=== PATIENT | male | born 1955 | race Caucasian/White ===

== ENCOUNTER → 2019-08-25 09:42 | Outpatient (BNVA) | payer MEDICARE, SELFPAY | PROVIDERS: Family Provider Registered Nurse; PCP Registered Nurse; Visit Provider Specialist | DX: I65.1 Occlusion and stenosis of basilar artery (principal); Z87.891 Personal history of nicotine dependence; Z86.73 Personal history of transient ischemic attack (TIA), and cerebral infarction without residual deficits | CPT/HCPCS: 99213 ==

== ENCOUNTER → 2019-09-24 08:22 | Outpatient (BNVA) | payer MEDICARE, SELFPAY | PROVIDERS: Family Provider Registered Nurse; PCP Registered Nurse; Visit Provider Registered Nurse | DX: E78.00 Pure hypercholesterolemia, unspecified (principal); R60.1 Generalized edema; I10 Essential (primary) hypertension; E78.5 Hyperlipidemia, unspecified; Z87.891 Personal history of nicotine dependence | CPT/HCPCS: 80061; 85025 ==

== ENCOUNTER 2019-11-18 10:29 | Outpatient (CLI) | payer MEDICARE, SELFPAY ==
--- NOTE | 2019-11-18 10:35 | MR_ITS ---
WS: [id number] MRA ANGIOGRAPHY [place] HISTORY: CVA COMPARISON: CT angiogram 01/07/2018 TECHNIQUE: 3-D MR angiography is performed of the [place]. All images are reviewed including source images. Dominant LEFT vertebral artery. Distal RIGHT vertebral artery is small caliber and tortuous but paten t. 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 No aneurysm. Posterior cerebral arteries are normal caliber. Hypoplas tic LEFT posterior communicating artery. Dominant RIGHT posterior communicating artery. Intracranial portion of the internal carotid arteries are normal course and caliber. No significant a therosclerosis, stenosis or aneurysm identified. Middle and anterior cerebral arteries are both paten t with no significant disease. Very mild diffuse narrowing of the RIGHT A1 segment. Similar to the pr ior examination with no progression. Anterior communicating artery is also normal. MR/MR angio head wo con [id number] IMPRESSION: 1. Dominant LEFT vertebral artery. 2. Mild narrowing of the proximal to mid basilar artery is unchanged. 3. Mild hypoplasia RIGHT A1 segment is unchanged. 4. No aneurysms or occlusions.
== END 2019-11-18 10:30 | disposition home or self-care (01) ==
LOC: RADWPI 10:34
PROVIDERS: Family Provider Registered Nurse; PCP Registered Nurse; Visit Provider Specialist
DX: I63.9 Cerebral infarction, unspecified (principal)
CPT/HCPCS: 70544

== ENCOUNTER → 2019-11-23 13:00 | Outpatient (BNVA) | payer MEDICARE, SELFPAY | PROVIDERS: Family Provider Registered Nurse; PCP Registered Nurse; Visit Provider Specialist | DX: I63.9 Cerebral infarction, unspecified (principal); I65.1 Occlusion and stenosis of basilar artery | CPT/HCPCS: 99213 ==

== ENCOUNTER 2019-11-30 09:57 | Outpatient (RCR) | payer MEDICARE, SELFPAY | END 2019-12-20 23:59 | disposition home or self-care (01) | LOC: SPT 09:57 | PROVIDERS: PCP Registered Nurse; Referring Provider Nurse Practitioner; Visit Provider Nurse Practitioner | DX: R42 Dizziness and giddiness (principal) | CPT/HCPCS: 95992; 97162 ==

== ENCOUNTER → 2022-01-23 09:04 | Outpatient (BNVA) | payer MEDICARE, SELFPAY | PROVIDERS: Referring Provider Nurse Practitioner Family; Visit Provider Anesthesiology Pain Medicine | DX: M41.9 Scoliosis, unspecified (principal); M47.816 Spondylosis without myelopathy or radiculopathy, lumbar region; M51.16 Intervertebral disc disorders with radiculopathy, lumbar region; M79.604 Pain in right leg; M79.605 Pain in left leg; Z87.891 Personal history of nicotine dependence | CPT/HCPCS: 99204 ==

== ENCOUNTER 2022-05-17 08:16 | Outpatient (CLI) | payer MEDICARE, SELFPAY ==
--- NOTE | 2022-05-17 08:00 | MR_ITS ---
WS: [id number] MRI LUMBAR SPINE NONCONTRAST HISTORY: Scoliosis and chronic back pain. No injury. COMPARISON: None available. TECHNIQUE: Sagittal and axial multisequence imaging is submitted. Straightening of the normal cervical lordosis. Cervical, thoracic and lumbar curvature. Moderate long curvature lumbar scoliosis to the LEFT. Disc space narrowing and degeneration most significant at L2-3. No fractures or marrow edema. Conus terminates normally at L1-2 disc level. L1-L2: Mild annular disc bulging and ligamentum flavum hypertrophy. Very mild RIGHT subarticular rece ss and foraminal stenosis. L2-L3: Osteophytic ridging and annular disc bulging with ligamentum flavum and facet arthritis. Mild central with bilateral subarticular recess and foraminal stenosis. Slightly greater encroachment upon the RIGHT subarticular recess and foramen. L3-L4: Diffuse annular disc bulge with a shallow LEFT foraminal disc protrusion. Mild ligamentum flav um and facet arthritis. Mild bilateral foraminal stenosis. L4-L5: Mild annular disc bulging and osteophytic ridging. Shallow LEFT subarticular disc protrusion w ith mild contact on the traversing LEFT L5 nerve root. Mild bilateral foraminal stenosis. L5-S1: Mild annular disc bulging. Bilateral facet joint arthritis. There is a small soft tissue signa l intensity extending superiorly from the L5-S1 disc space on the LEFT. Probably a small disc protrusion but does not appear to be contacting the nerve roots. Paravertebral soft tissues are normal. MR/MR lumbar spine wo con* [id number] IMPRESSION: 1. Cervical, thoracic and lumbar scoliosis. 2. Mild RIGHT subarticular recess and foraminal stenosis at L1-2. 3. Mild central, bilateral subarticular recess and foraminal stenosis at L2-3. Slightly greater encroachment upon the RIGHT subarticular recess. 4. Mild bilateral foraminal stenosis at L3-4 and L4-5. 5. Shallow LEFT subarticular disc protrusion at L4-5 with mild contact on the traversing L5 nerve root. 6. No high-grade central stenosis. 7. Bilateral mild facet joint arthropathy. Most significant at L5-S1.
== END 2022-05-17 08:17 | disposition home or self-care (01) ==
PROVIDERS: Visit Provider Anesthesiology Pain Medicine
DX: M51.16 Intervertebral disc disorders with radiculopathy, lumbar region (principal); M41.82 Other forms of scoliosis, cervical region; M41.84 Other forms of scoliosis, thoracic region; M41.86 Other forms of scoliosis, lumbar region; M48.061 Spinal stenosis, lumbar region without neurogenic claudication; M51.26 Other intervertebral disc displacement, lumbar region; M47.817 Spondylosis without myelopathy or radiculopathy, lumbosacral region
CPT/HCPCS: 72148

== ENCOUNTER → 2022-06-10 08:47 | Outpatient (BNVA) | payer MEDICARE, SELFPAY | PROVIDERS: Visit Provider Anesthesiology Pain Medicine | DX: M47.816 Spondylosis without myelopathy or radiculopathy, lumbar region (principal); M51.16 Intervertebral disc disorders with radiculopathy, lumbar region; M41.9 Scoliosis, unspecified; M79.605 Pain in left leg | CPT/HCPCS: 99214 ==

== ENCOUNTER 2022-08-18 15:50 | Emergency (ER) | payer MEDICARE, MEDICAID, SELFPAY ==
[2022-08-18 15:58] VITALS: BP 162/70; PULSE 102; RESP 18; TEMP 37.2; O2SAT 94
[2022-08-18] MEDS: sodium chloride 0.9% 1,000 ML 999 ML IV (16:21)
[2022-08-18 16:23] LABS: Basophils % 0.2 %; Eosinophils % 0.1 %; Hematocrit 45.3 % (42.0-52.0); Hemoglobin 14.2 g/dL (11.7-16.6); Lymphocytes # 0.6 10^3/uL (0.8-4.8); Lymphocytes % 3.3 %; Mean Corpuscular HGB Conc 31.3 g/dL (30.0-36.0); Mean Corpuscular Hemoglobin 25.9 pg (28.0-34.0); Mean Corpuscular Volume 82.5 fl (80-94); Monocytes # 1.9 10^3/uL (0.2-0.9); Monocytes % 10.1 %; Neutrophils # 16.27 10^3/uL (1.8-7.7); Neutrophils % 85.8 %; Nucleated Red Blood Cells % 0 %; Platelet Count 254 10^3/cmm (130-400); Red Blood Count 5.49 10^6/uL (4.1-5.3); Red Cell Distribution Width 15.8 % (12.1-15.1)
--- NOTE | 2022-08-18 16:24 | CTR_ITS ---
PROCEDURE INFORMATION: Exam: CT Abdomen And Pelvis Without Contrast Exam date and time: 08/18/2022 4:56 PM Age: 66 years old Clinical indication: Abdominal pain; Generalized TECHNIQUE: Imaging protocol: Computed tomography of the abdomen and pelvis without contrast. Radiation optimization: All CT scans at this facility use at least one of these dose optimization techniques: automated exposure control; mA and/or kV adjustment per patient size (includes targeted exams where dose is matched to clinical indication); or iterative reconstruction. REPORTING DATA: Count of CT and Cardiac NM exams in prior 12 months: This patient has received 0 known CTs and 0 known cardiac nuclear medicine studies in the 12 months prior to the current study. COMPARISON: MR lumbar spine wo con* [id number] 05/17/2022 8:42 AM RADIATION DOSE METRICS: Total DLP (mGy-cm): 1216.43 FINDINGS: Diaphragm: A small hiatal hernia is present. Liver: There is a diffuse decrease in hepatic parenchymal density, consistent with fatty infiltration. Gallbladder and bile ducts: Multiple calcified gallstones are present. The gallbladder is very distended with fluid/hydrops. The wall of the gallbladder is thickened or edematous measuring up to 6 mm. There is haziness of the fat adjacent to the gallbladder specially the neck of the gallbladder and proximal common bile duct. There are 2 [id number] calculi in the cystic duct/proximal common bile duct series 5 image 32 and 33. The cystic duct/common bile duct proximal to the 2 calculi measures 1.4 cm and the distal common bile duct is collapsed and barely identifiable. Pancreas: The pancreas is normal. Spleen: The spleen is normal. An accessory splenule is present. Adrenal glands: Normal. No mass. Kidneys and ureters: There is no evidence of hydronephrosis. There is a patulous appearance of the distal right ureter but no obstructing calculi or perinephric fat stranding. The left ureters unremarkable. There is no evidence of renal calcifications. Stomach and bowel: There is no evidence of intestinal perforation or obstruction. Moderate diverticulosis is present in the distal colon. There is no evidence of colitis/diverticulitis. Appendix: A normal appendix is identified. Intraperitoneal space: Unremarkable. No free air. No significant fluid collection. 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 The remainder of the abdominal aorta is unremarkable. Lymph nodes: Unremarkable.No enlarged lymph nodes. Urinary bladder: There is nonspecific bladder wall thickening. This may be related to incomplete distention. Reproductive: The prostate demonstrates mild nonspecific enlargement. The seminal vesicles are normal. Bones/joints: There is levoscoliosis. No acute bony abnormality. Soft tissues: Small bilateral fat filled inguinal hernias are noted. There is a fat-containing umbilical hernia. CT/CT abdomen pelvis wo con [id number] IMPRESSION: Acute cholecystitis. Two xuco-xq-ukqx calculi are identified in either the cystic duct or common bile duct with duct dilatation proximal to the calculi, abundant induration of the adjacent fat, markedly distended gallbladder and gallbladder wall thickening/edema. Distal common bile duct is not dilated. Cholelithiasis is also noted.
--- NOTE | 2022-08-18 16:24 | W.ED.ABDPA2 ---
Documented by User: Lorenzo Tolentino DO 08/18/22 17:56 HPI - Abdominal Pain General: Chief Complaint: Abdominal Pain Stated Complaint: abd pains Time Seen by Provider: 08/18/22 15:54 Source: patient Mode of arrival: ambulatory History of Present Illness: 66-year-old male presents emergency room planing of diarrhea that started about 4 days ago and developed abdominal pain. Mostly epigastric however when I examined the patient it was actually more right upper quadrant. He has a large umbilical hernia and its been nonreducible for some time. Initially did not have any pain around the hernia but did some heavy lifting on Friday and Friday and now he has more pain at the hernia site. MD elicited complaint: abdominal pain Pertinent past history: none Onset (ago): day(s) (4) Pain Consistency: constant Location: Periumbilical Severity: moderate Quality: cramping Radiation: RUQ Exacerbating factors: nothing Relieving factors: nothing Associated Symptoms: Denies anorexia, belching, bloating, change in bowel habits, change in stool character, chills, coffee ground emesis, constipation, GI cramping, diarrhea, dyspepsia, dysuria, excessive flatus, fever(s), heartburn, hematochezia, hematuria, hematemesis, fecal incontinence, loose stools, melena, nausea, poor appetite, syncope and vomiting Review of Systems Const: Denies: fever(s) or chills Card: Denies: syncope GI: Denies: nausea, vomiting, hematemesis, coffee ground emesis, heartburn, diarrhea, constipation, bloating, GI cramping, belching, excessive flatus, fecal incontinence, change in bowel habits, change in stool character, hematochezia or melena : Denies: dysuria or hematuria PFSH ED PFSH: Medical History Quit smoking Family History Mother Hypertension CAD (coronary artery disease) Cancer Father CAD (coronary artery disease) Mother CAD (coronary artery disease) Cancer Lung Father CAD (coronary artery disease) Alcohol abuse Social History Smoking and tobacco status: former smoker Alcohol intake: current Alcohol intake frequency: holidays/special occasions only Alcohol type: beer Course Vital Signs: Vital signs: Vital Signs Temperature 99.0 F 08/18/22 15:58 Pulse Rate 90 08/18/22 22:54 Respiratory Rate 16 08/18/22 22:54 Blood Pressure 142/71 08/18/22 22:54 Pulse Oximetry 95 08/18/22 22:54 Oxygen Delivery Me thod Room Air 08/18/22 19:08 MDM - Abdominal Pain Medical Decision Making Patient has acute cholecystitis with possible common bile duct stone. MRCP has been ordered patient is allergic to penicillin so was started on ceftriaxone and Flagyl. Care signed out to Dr. Hair at change of shift. See final notes for diagnosis and disposition. Medical Records I reviewed the patient's medical records. Lab Data I reviewed the patient's lab results. 08/18/22 16:15 08/18/22 16:15 Labs/Radiology: Radiology Impressions Abdomen/Pelvis CT 08/18/22 16:24 IMPRESSION: Acute cholecystitis. Two hnlm-sy-ycfd calculi are identified in either the cystic duct or common bile duct with duct dilatation proximal to the calculi, abundant induration of the adjacent fat, markedly distended gallbladder and gallbladder wall thickening/edema. Distal common bile duct is not dilated. Cholelithiasis is also noted. Cholangiopancreatography MRI 08/18/22 17:43 IMPRESSION: 1. Sequela consistent with acute cholecystitis. No evidence of biliary obstruction/choledocholithiasis. 2. Hepatic steatosis. COMMENTS: Consistent with the [employer]'s Incidental Findings Committee white paper (J Am Elmer Radiol 2018): Any incidental renal lesion less than 1 cm or classified as too small to characterize, or any incidental cystic renal lesion characterized as simple-appearing, is likely benign. No follow-up imaging is recommended for these lesions per consensus recommendations based on imaging criteria. Laboratory Results WBC 19.0 10^3/uL (4.0-10.0) H 08/18/22 16:15 RBC 5.49 10^6/uL (4.1-5.3) H 08/18/22 16:15 Hgb 14.2 g/dL (11.7-16.6) 08/18/22 16:15 Hct 45.3 % (42.0-52.0) 08/18/22 16:15 MCV 82.5 fl (80-94) 08/18/22 16:15 MCH 25.9 pg (28.0-34.0) L 08/18/22 16:15 MCHC 31.3 g/dL (30.0-36.0) 08/18/22 16:15 RDW 15.8 % (12.1-15.1) H 08/18/22 16:15 Plt Count 254 10^3/cmm (130-400) 08/18/22 16:15 MPV 11.0 fL (7.4-10.4) H 08/18/22 16:15 Neut % (Auto) 85.8 % 08/18/22 16:15 Lymph % (Auto) 3.3 % 08/18/22 16:15 [place] % (Auto) 10.1 % 08/18/22 16:15 Eos % (Auto) 0.1 % 08/18/22 16:15 Baso % (Auto) 0.2 % 08/18/22 16:15 Neut # (Auto) 16.27 10^3/uL (1.8-7.7) H 08/18/22 16:15 Lymph # (Auto) 0.6 10^3/uL (0.8-4.8) L 08/18/22 16:15 [place] # (Auto) 1.9 10^3/uL (0.2-0.9) H 08/18/22 16:15 Eos # (Auto) 0.0 10^3/uL (0.0-0.8) 08/18/22 16:15 Baso # (Auto) 0.0 10^3/uL (0.0-0.1) 08/18/22 16:15 Nucleated RBC % (auto) 0 % 08/18/22 16:15 Nucleated RBCs # 0.0 /100WBC 08/18/22 16:15 Sodium 132 mmol/L (136-145) L 08/18/22 16:15 Potassium 4.1 mmol/L (3.5-5.1) 08/18/22 16:15 Chloride 96 mmol/L (98-107) L 08/18/22 16:15 Carbon Dioxide 22 mmol/L (22-29) 08/18/22 16:15 Anion Gap 18.1 (5-19) 08/18/22 16:15 BUN 21 mg/dL (8-23) 08/18/22 16:15 Creatinine 1.3 mg/dL (0.7-1.2) H 08/18/22 16:15 GFR Calculation 55.4 mL/min (90-130) L 08/18/22 16:15 Glucose 137 mg/dL (65-115) H 08/18/22 16:15 Calculated Osmolality 279 mOsm/kg (285-295) L 08/18/22 16:15 Calcium 8.5 mg/dL (8.5-10.5) 08/18/22 16:15 Magnesium 1.2 mg/dL (1.7-2.3) L 08/18/22 16:15 Total Bilirubin 2.3 mg/dL (0.15-1.2) H 08/18/22 16:15 AST 14 U/L (0-40) 08/18/22 16:15 ALT 17 U/L (0-41) 08/18/22 16:15 Alkaline Phosphatase 131 U/L (40-130) H 08/18/22 16:15 Total Protein 7.5 g/dL (6.6-8.7) 08/18/22 16:15 Albumin 4.1 g/dL (3.5-5.2) 08/18/22 16:15 Globulin 3.4 g/dL (1.3-4.6) 08/18/22 16:15 Lipase 16 U/L (13-60) 08/18/22 16:15 Urine Color Dark yellow (Yellow) 08/18/22 16:30 Urine Appearance Clear (CLEAR) 08/18/22 16:30 Urine pH 6.5 (5-7) 08/18/22 16:30 Ur Specific [place] 1.010 (1.005-1.030) 08/18/22 16:30 Urine Protein Neg (Negative) 08/18/22 16:30 Urine Glucose (UA) Norm (Normal) 08/18/22 16:30 Urine Ketones Negative (Negative) 08/18/22 16:30 Urine Blood Neg (Negative) 08/18/22 16:30 Urine Nitrate Negative (Negative) 08/18/22 16:30 Urine Bilirubin Neg (Negative) 08/18/22 16:30 Urine Urobilinogen 1 mg/dL (Negative) H 08/18/22 16:30 Ur Leukocyte Esterase Negative (Negative) 08/18/22 16:30 Discharge Plan Discharge Patient Disposition: Xfer Short-Term Hosp Clinical Impression: Acute calculous cholecystitis Condition: Stable Referrals: Elda Ptaricio FNP [Primary Care Provider] - Coding Level of Care Code ED Life Skills Coordinator Volunteer for [facility] Documented by User: Bolivar Hair, 08/18/22 23:35 HPI - Abdominal Pain General: Chief Complaint: Abdominal Pain Stated Complaint: abd pains Time Seen by Provider: 08/18/22 15:54 PFSH ED PFSH: Medical History Quit smoking Family History Mother Hypertension CAD (coronary artery disease) Cancer Father CAD (coronary artery disease) Mother CAD (coronary artery disease) Cancer Lung Father CAD (coronary artery disease) Alcohol abuse Social History Smoking and tobacco status: former smoker Alcohol intake: current Alcohol intake frequency: holidays/special occasions only Alcohol type: beer Course Vital Signs: Vital signs: Vital Signs Temperature 99.0 F 08/18/22 15:58 Pulse Rate 90 08/18/22 22:54 Respiratory Rate 16 08/18/22 22:54 Blood Pressure 142/71 08/18/22 22:54 Pulse Oximetry 95 08/18/22 22:54 Oxygen Delivery Me thod Room Air 08/18/22 19:08 MDM - Abdominal Pain Medical Decision Making Patient has acute cholecystitis with possible common bile duct stone. MRCP has been ordered patient is allergic to penicillin so was started on ceftriaxone and Flagyl. Care signed out to Dr. Hair at change of shift. See final notes for diagnosis and disposition. Patient checked out to me by Dr. Tolentino at shift change. MRCP results show sequela consistent with acute cholecystitis. There is no evidence of bowel duct/biliary tree obstruction or choledocholithiasis. Spoke with hospitalist service, they are willing to admit provided surgery will consult. We have a call out to the surgeon. Spoke with our on-call surgeon Dr. Mccollum. Dr. Mccollum states that while the patient's MRCP is negative, his bilirubin is still elevated, requiring him to be transferred to a facility for ERCP capability is present. We have a call out to [facility] in [place], as they do have gastroenterology available for consultation there. Awaiting callback [facility] his excepted the transfer. Patient will go to [facility] bed. He is stable for transport. EMS is here to get the patient. Lab Data 08/18/22 16:15 08/18/22 16:15 Labs/Radiology: Radiology Impressions Abdomen/Pelvis CT 08/18/22 16:24 IMPRESSION: Acute cholecystitis. Two vxhr-ag-cmrd calculi are identified in either the cystic duct or common bile duct with duct dilatation proximal to the calculi, abundant induration of the adjacent fat, markedly distended gallbladder and gallbladder wall thickening/edema. Distal common bile duct is not dilated. Cholelithiasis is also noted. Cholangiopancreatography MRI 08/18/22 17:43 IMPRESSION: 1. Sequela consistent with acute cholecystitis. No evidence of biliary obstruction/choledocholithiasis. 2. Hepatic steatosis. COMMENTS: Consistent with the [employer] [employer]'s Incidental Findings Committee white paper (J Am Elmer Radiol 2018): Any incidental renal lesion less than 1 cm or classified as too small to characterize, or any incidental cystic renal lesion characterized as simple-appearing, is likely benign. No follow-up imaging is recommended for these lesions per consensus recommendations based on imaging criteria. Laboratory Results WBC 19.0 10^3/uL (4.0-10.0) H 08/18/22 16:15 RBC 5.49 10^6/uL (4.1-5.3) H 08/18/22 16:15 Hgb 14.2 g/dL (11.7-16.6) 08/18/22 16:15 Hct 45.3 % (42.0-52.0) 08/18/22 16:15 MCV 82.5 fl (80-94) 08/18/22 16:15 MCH 25.9 pg (28.0-34.0) L 08/18/22 16:15 MCHC 31.3 g/dL (30.0-36.0) 08/18/22 16:15 RDW 15.8 % (12.1-15.1) H 08/18/22 16:15 Plt Count 254 10^3/cmm (130-400) 08/18/22 16:15 MPV 11.0 fL (7.4-10.4) H 08/18/22 16:15 Neut % (Auto) 85.8 % 08/18/22 16:15 Lymph % (Auto) 3.3 % 08/18/22 16:15 [place] % (Auto) 10.1 % 08/18/22 16:15 Eos % (Auto) 0.1 % 08/18/22 16:15 Baso % (Auto) 0.2 % 08/18/22 16:15 Neut # (Auto) 16.27 10^3/uL (1.8-7.7) H 08/18/22 16:15 Lymph # (Auto) 0.6 10^3/uL (0.8-4.8) L 08/18/22 16:15 [place] # (Auto) 1.9 10^3/uL (0.2-0.9) H 08/18/22 16:15 Eos # (Auto) 0.0 10^3/uL (0.0-0.8) 08/18/22 16:15 Baso # (Auto) 0.0 10^3/uL (0.0-0.1) 08/18/22 16:15 Nucleated RBC % (auto) 0 % 08/18/22 16:15 Nucleated RBCs # 0.0 /100WBC 08/18/22 16:15 Sodium 132 mmol/L (136-145) L 08/18/22 16:15 Potassium 4.1 mmol/L (3.5-5.1) 08/18/22 16:15 Chloride 96 mmol/L (98-107) L 08/18/22 16:15 Carbon Dioxide 22 mmol/L (22-29) 08/18/22 16:15 Anion Gap 18.1 (5-19) 08/18/22 16:15 BUN 21 mg/dL (8-23) 08/18/22 16:15 Creatinine 1.3 mg/dL (0.7-1.2) H 08/18/22 16:15 GFR Calculation 55.4 mL/min (90-130) L 08/18/22 16:15 Glucose 137 mg/dL (65-115) H 08/18/22 16:15 Calculated Osmolality 279 mOsm/kg (285-295) L 08/18/22 16:15 Calcium 8.5 mg/dL (8.5-10.5) 08/18/22 16:15 Magnesium 1.2 mg/dL (1.7-2.3) L 08/18/22 16:15 Total Bilirubin 2.3 mg/dL (0.15-1.2) H 08/18/22 16:15 AST 14 U/L (0-40) 08/18/22 16:15 ALT 17 U/L (0-41) 08/18/22 16:15 Alkaline Phosphatase 131 U/L (40-130) H 08/18/22 16:15 Total Protein 7.5 g/dL (6.6-8.7) 08/18/22 16:15 Albumin 4.1 g/dL (3.5-5.2) 08/18/22 16:15 Globulin 3.4 g/dL (1.3-4.6) 08/18/22 16:15 Lipase 16 U/L (13-60) 08/18/22 16:15 Urine Color Dark yellow (Yellow) 08/18/22 16:30 Urine Appearance Clear (CLEAR) 08/18/22 16:30 Urine pH 6.5 (5-7) 08/18/22 16:30 Ur Specific [place] 1.010 (1.005-1.030) 08/18/22 16:30 Urine Protein Neg (Negative) 08/18/22 16:30 Urine Glucose (UA) Norm (Normal) 08/18/22 16:30 Urine Ketones Negative (Negative) 08/18/22 16:30 Urine Blood Neg (Negative) 08/18/22 16:30 Urine Nitrate Negative (Negative) 08/18/22 16:30 Urine Bilirubin Neg (Negative) 08/18/22 16:30 Urine Urobilinogen 1 mg/dL (Negative) H 08/18/22 16:30 Ur Leukocyte Esterase Negative (Negative) 08/18/22 16:30 Discharge Plan Discharge Patient Disposition: Xfer Short-Term Hosp Clinical Impression: Acute calculous cholecystitis Condition: Stable Referrals: Sintia,Elda, HEEL TURNER [Primary Care Provider] - Coding Level of Care Code ED Life Skills Coordinator Volunteer for Danielle Wing
[2022-08-18 16:44] LABS: Alanine Aminotransferase 17 U/L (0-41); Albumin Level 4.1 g/dL (3.5-5.2); Alkaline Phosphatase 131 U/L (40-130); Anion Gap 18.1 (5-19); Aspartate Amino Transferase 14 U/L (0-40); Blood Urea Nitrogen 21 mg/dL (8-23); Calcium 8.5 mg/dL (8.5-10.5); Carbon Dioxide 22 mmol/L (22-29); Chloride 96 mmol/L (98-107); Globulin 3.4 g/dL (1.3-4.6); Glomerular Filtration Rate 55.4 mL/min (90-130); Glucose 137 mg/dL (65-115); Lipase 16 U/L (13-60); Magnesium 1.2 mg/dL (1.7-2.3); Osmolality Calculated 279 mOsm/kg (285-295); Potassium 4.1 mmol/L (3.5-5.1); Sodium 132 mmol/L (136-145); Total Bilirubin 2.3 mg/dL (0.15-1.2); Total Protein 7.5 g/dL (6.6-8.7)
[2022-08-18 16:46] LABS: Creatinine Clr Calc Pharmacy 78.0147
[2022-08-18 16:48] VITALS: RESP 17; O2SAT 96
[2022-08-18 16:48] LABS: Add Urine Microscopic? NO; Charge for UA Resulting for Rev
[2022-08-18 16:53] LABS: Bilirubin Urine Neg (Negative); Blood Urine Neg (Negative); Glucose Urine UA Norm (Normal); Ketones Urine Negative (Negative); Leukocyte Esterase Urine Negative (Negative); Nitrate Urine Negative (Negative); Protein Urine Neg (Negative); Urine Appearance Clear (CLEAR); Urine Color Dark Yellow (Yellow); Urobilinogen Urine 1 mg/dL (Negative); pH Urine 6.5 (5-7)
--- NOTE | 2022-08-18 17:43 | MRR_ITS ---
PROCEDURE INFORMATION: Exam: MR Abdomen Without Contrast Exam date and time: 08/18/2022 6:54 PM Age: 66 years old Clinical indication: Abdominal pain; Generalized; Additional info: Dilated common bile duct hyperbilirubinemia TECHNIQUE: Imaging protocol: Magnetic resonance imaging of the abdomen without contrast. COMPARISON: CT abdomen pelvis con [id number] 08/18/2022 4:56 PM FINDINGS: Liver: Diffuse hepatic steatosis. No mass. Gallbladder and bile ducts: Cholelithiasis and debris noted within the gallbladder neck. The gallbladder is mildly distended. There is wall thickening up to 5 mm. Trace pericholecystic fluid noted. No filling defects seen within the common bile duct. No dilation of the intrahepatic or extrahepatic biliary system. Pancreas: Unremarkable. No ductal dilation. Spleen: Unremarkable. No splenomegaly. Adrenal glands: Unremarkable. No mass. Kidneys and ureters: Mild right-sided caliectasis. Subcentimeter cyst noted in the left kidney. No solid mass. Stomach and bowel: Visualized stomach and intestines are unremarkable. Intraperitoneal space: No free fluid. Vasculature: No abdominal aortic aneurysm. Bones/joints: Unremarkable. Soft tissues: Unremarkable. MR/MR MRCP [id number] IMPRESSION: 1. Sequela consistent with acute cholecystitis. No evidence of biliary obstruction/choledocholithiasis. 2. Hepatic steatosis. COMMENTS: Consistent with the [place] [employer]'s Incidental Findings Committee white paper (J Am Elmer Radiol 2018): Any incidental renal lesion less than 1 cm or classified as too small to characterize, or any incidental cystic renal lesion characterized as simple-appearing, is likely benign. No follow-up imaging is recommended for these lesions per consensus recommendations based on imaging criteria.
[2022-08-18] MEDS: morphine 4 mg/mL SDV 1 mL IVP (18:27)
[2022-08-18 19:08] VITALS: O2SAT 98
[2022-08-18 19:34] VITALS: BP 154/71; PULSE 90; RESP 16; O2SAT 95
[2022-08-18] MEDS: cefTRIAXone 2,000 MG in sodium chloride 0.9% (plus) 50 ML 100 MG IV (19:35)
[2022-08-18] MEDS: metroNIDAZOLE IV 500 MG/100 ML PREMIX 100 MG IV (20:03)
[2022-08-18 22:00] VITALS: BP 127/81; PULSE 86; RESP 16; O2SAT 94
[2022-08-18 22:54] VITALS: BP 142/71; PULSE 90; RESP 16; O2SAT 95
== END 2022-08-18 23:51 | disposition short-term general hospital (02) ==
LOC: ER 21:18 → MEDSURG 21:23 → ER 23:35
PROVIDERS: Family Medicine; Emergency Provider Emergency Medicine; PCP Nurse Practitioner Family
DX: K80.00 Calculus of gallbladder with acute cholecystitis without obstruction (principal)
CPT/HCPCS: 36415; 74176; 74181; 80053; 81003; 83690; 83735; 85025; 87040; 96361; 96365; 96375; 99285; J0696; J2270; J3490; J7030

== ENCOUNTER 2022-08-23 07:39 | Inpatient (IN) | payer MEDICARE, MEDICAID, SELFPAY ==
[2022-08-23] VITALS (66 sets, daily range): BP systolic 122–157; BP diastolic 72–96; PULSE 43–138; RESP 14–39; TEMP 36.6; O2SAT 86–99; BMI 38.7
--- NOTE | 2022-08-23 07:47 | XR_ITS ---
WS: [id number] Portable AP upright chest, 08/23/2022 Clinical Data: dyspnea/cough Comparison: Portable chest, 01/07/2018. Findings: No nodules, masses or effusions are seen. The heart is normal. The pulmonary vascularity is not increased. No pneumonia or pneumothorax is seen. The aortic arch and descending thoracic aorta s how tortuosity. There is a dextroscoliosis. Monitor leads are on the chest wall. XR/XR chest 1V portable [id number] Impression: Atherosclerosis.
--- NOTE | 2022-08-23 07:51 | ECG_ITS ---
[facility] Test Date: 2022-08-23 Pat Name: Yannick Lucas Department: Room: Gender: Male [place] Consultant: : [id number] Requested By: Lorenzo Santacruz Order Number: [id number] Saurav MD: Anam Moralez M.D. Measurements Intervals [place] Rate: 105 P: 61 GA: 153 QRS: 125 QRSD: 107 T: 4 QT: 346 QTc: 458 Interpretive Statements SINUS TACHYCARDIA POSSIBLE RIGHT VENTRICULAR HYPERTROPHY [SOME/ALL OF: PROMINENT R IN V1, LATE TRANSITION, RAD, ROSANGELA, SSS] Compared to ECG 01/07/2018 13:11:16 Atrial abnormality now present Sinus rhythm no longer present Indeterminate axis no longer present Left posterior fascicular block no longer present Electronically Signed On 08-23-2022 11:00:13 CDT by Anam Moralez M.D. [email or web address]
--- NOTE | 2022-08-23 07:52 | ED_ITS ---
HPI - SOB/Dyspnea General: Chief Complaint: Shortness of Breath/Dyspnea Stated Complaint: SOB/ low ox Time Seen by Provider: 08/23/22 07:46 Source: patient Mode of arrival: ambulatory History of Present Illness: HPI Narrative: 66-year-old male who presents to the emergency room with complaints of shortness of breath. On the he was seen with cholecystitis symptoms had a common bile duct obstruction and was transferred. He had a cholecystectomy and ERCP and a stent placed. Today returns complaining of shortness of breath and rapid heart rate mild chest discomfort. No known history of coronary artery disease. He has not had any swelling in his legs no previous history of DVT. No fever sweats or chills no nausea or vomiting. He is requiring 2 L by nasal cannula he normally is on room air. MD elicited complaint: shortness of breath and cough Onset (ago): day(s) Context: recent illness Timing: constant Severity: moderate Exacerbating factors: exertion and coughing Relieving factors: oxygen and rest Associated symptoms: Deny abdominal pain, chest pain, fever(s), nausea, orthopnea, palpitations or vomiting Review of Systems Const: Denies: fever(s), chills, body aches, change in appetite, fatigue or malaise ENMT: Denies: throat pain, ear or mastoid pain, nasal discharge or nasal congestion Card: Denies: chest pain, palpitations, irregular heart rhythm, edema, dyspnea on exertion or orthopnea Resp: Denies: dyspnea, productive cough or non-productive cough GI: Denies: abdominal pain, nausea, vomiting, hematemesis, coffee ground emesis, diarrhea, constipation, bloating, hematochezia or melena : Denies: flank pain, dysuria, urinary frequency or urinary urgency Skin/Breast: Denies: rash or pruritus PFSH ED PFSH: Medical History Carotid stenosis Chronic kidney disease COPD (chronic obstructive pulmonary disease) CVA (cerebral vascular accident) Hyperlipidemia Hypertension TYLER (obstructive sleep apnea) Quit smoking Surgical History History of biliary duct stent placement History of cholecystectomy Family History Mother Hypertension CAD (coronary artery disease) Cancer Father CAD (coronary artery disease) Mother CAD (coronary artery disease) Cancer Lung Father CAD (coronary artery disease) Alcohol abuse Social History Smoking and tobacco status: former smoker Alcohol intake: current Alcohol intake frequency: holidays/special occasions only Alcohol type: beer Physical Exam Const: GENERAL APPEARANCE: cooperative and comfortable ORIENTATION/CONSCIOUSNESS: Yes awake, Yes oriented to person, Yes oriented to place and Yes oriented to time HENMT: COMMON NORMALS: normocephalic, atraumatic and hearing grossly normal bilaterally HEAD & SCALP: normocephalic and atraumatic Resp: COMMON NORMALS: normal respiratory effort, No retractions, No use of acc essory muscles and clear to auscultation bilaterally AUSCULTATION: clear to auscultation bilaterally Cardio: COMMON NORMALS: regular rate, regular rhythm and No murmurs present (Cardio) RATE: regular rate RHYTHM: regular rhythm GI: COMMON NORMALS: Soft to palpation and No hepatosplenomegaly present AUSCULTATION: Yes normoactive bowel sounds PALPATION: Yes Soft to palpation, No Tenderness to palpation present (GI), No Guarding due to palpation present (G I) and Yes No hepatosplenomegaly present Extremity: COMMON NORMALS: normal to inspection, capillary refill normal, no clubbing, cyanosis or edema, no calf tenderness and no pedal edema Neuro: SENSORIUM/ORIENTATION: Yes oriented to person, Yes oriented to place and Yes oriented to time Skin: COMMON NORMALS: no rashes or lesions noted GENERAL SKIN EXAM: no rashes or lesions noted Course Vital Signs: Vital signs: Vital Signs Pulse Rate 103 H 08/23/22 15:09 Respiratory Rate 18 08/23/22 15:09 Blood Pressure 122/76 08/23/22 12:46 Pulse Oximetry 95 08/23/22 15:09 Oxygen Delivery Me thod Nasal Cannula 08/23/22 15:09 Oxygen Flow Rate 2 08/23/22 15:09 MDM - SOB/Dyspnea Medical Decision Making Initial evaluation patient was presenting as if he had a pulmonary embolism PE. CTA of the chest was negative for PE but did have an incidental finding of an ascending aortic aneurysm. This left to be followed up as an outpatient. Continues to require oxygen. His troponins are elevated but did not trend up. His BNP is elevated. Suspect he has some acute diastolic heart failure he does have some lower extremity edema. Additional incidental finding of right hydronephrosis without acute obstruction this may need further outpatient evaluation by urology. He did have some improvement with steroids and DuoNeb. I think there is some component of COPD exacerbation as well discussed with hospitalist will admit for further inpatient work-up and treatment. Medical Records I reviewed the patient's medical records. Lab Data I reviewed the patient's lab results. 08/23/22 08:17 08/23/22 08:17 Labs/Radiology: Radiology Impressions Chest X-Ray 08/23/22 07:47 Impression: Atherosclerosis. Chest CTA 08/23/22 07:56 IMPRESSION: 1. No pulmonary embolism. 2. 5.1 cm aneurysm of the ascending aorta with ulcerated plaque at the isthmus. Recommend surgical consultation. In general, aortic diameters of 5.[address] patients at high risk for rupture and should be considered for intervention. If connective tissue diseases such as Marfan or Jenn-Danlos disease is known, then a diameter of 5 cm prompts consideration of prophylactic aortic root replacement. 3. Bronchial wall thickening in the lower lobes without consolidation. Possible acute bronchitis. 4. Intraperitoneal free air consistent with recent cholecystectomy. 5. Incidental findings above. ADDENDUM: 08/23/22 0957 THIS REPORT CONTAINS FINDINGS THAT MAY BE CRITICAL TO PATIENT CARE. The findings were verbally communicated via telephone conference with LORENZO SOLIS at 9:56 AM CDT on 08/23/2022. The findings were acknowledged and understood. Abdomen/Pelvis CT 08/23/22 10:03 IMPRESSION: 1. Cholecystectomy. Expected postsurgical edema in the right upper quadrant with trace perihepatic fluid and small volume intraperitoneal free air. No abscess. No sign of significant bile leak. 2. Appropriately positioned patent distal common bile duct stent. 3. Dilated distal right ureter and mild right hydronephrosis. Probable stricture at the ureterovesical junction. No stone or mass is visible. Ureteral findings are similar to 08/18/2022. Hydronephrosis is mildly increased. Acute obstruction is not suspected. 4. Incidental findings above. Laboratory Results WBC 11.4 10^3/uL (4.0-10.0) H 08/23/22 08:17 RBC 4.45 10^6/uL (4.1-5.3) 08/23/22 08:17 Hgb 11.5 g/dL (11.7-16.6) L 08/23/22 08:17 Hct 38.1 % (42.0-52.0) L 08/23/22 08:17 MCV 85.6 fl (80-94) 08/23/22 08:17 MCH 25.8 pg (28.0-34.0) L 08/23/22 08:17 MCHC 30.2 g/dL (30.0-36.0) 08/23/22 08:17 RDW 15.5 % (12.1-15.1) H 08/23/22 08:17 Plt Count 236 10^3/cmm (130-400) 08/23/22 08:17 MPV 10.6 fL (7.4-10.4) H 08/23/22 08:17 Neut % (Auto) 84.9 % 08/23/22 08:17 Lymph % (Auto) 4.0 % 08/23/22 08:17 Amelia % (Auto) 9.2 % 08/23/22 08:17 Eos % (Auto) 1.1 % 08/23/22 08:17 Baso % (Auto) 0.3 % 08/23/22 08:17 Neut # (Auto) 9.67 10^3/uL (1.8-7.7) H 08/23/22 08:17 Lymph # (Auto) 0.5 10^3/uL (0.8-4.8) L 08/23/22 08:17 Amelia # (Auto) 1.1 10^3/uL (0.2-0.9) H 08/23/22 08:17 Eos # (Auto) 0.1 10^3/uL (0.0-0.8) 08/23/22 08:17 Baso # (Auto) 0.0 10^3/uL (0.0-0.1) 08/23/22 08:17 Nucleated RBC % (auto) 0 % 08/23/22 08:17 Nucleated RBCs # 0.0 /100WBC 08/23/22 08:17 Sodium 135 mmol/L (136-145) L 08/23/22 08:17 Potassium 3.9 mmol/L (3.5-5.1) 08/23/22 08:17 Chloride 96 mmol/L (98-107) L 08/23/22 08:17 Carbon Dioxide 28 mmol/L (22-29) 08/23/22 08:17 Anion Gap 14.9 (5-19) 08/23/22 08:17 BUN 33 mg/dL (8-23) H 08/23/22 08:17 Creatinine 1.4 mg/dL (0.7-1.2) H 08/23/22 08:17 GFR Calculation 50.9 mL/min (90-130) L 08/23/22 08:17 Glucose 134 mg/dL (65-115) H 08/23/22 08:17 Estimat Average Glucose 128 08/23/22 08:17 Hemoglobin A1c 6.1 % (4.0-6.0) H 08/23/22 08:17 Calculated Osmolality 289 mOsm/kg (285-295) 08/23/22 08:17 Calcium 8.0 mg/dL (8.5-10.5) L 08/23/22 08:17 Total Bilirubin 0.5 mg/dL (0.15-1.2) 08/23/22 08:17 AST 38 U/L (0-40) 08/23/22 08:17 ALT 40 U/L (0-41) 08/23/22 08:17 Alkaline Phosphatase 127 U/L (40-130) 08/23/22 08:17 Troponin T Baseline 74 ng/L (0-15) H 08/23/22 08:17 Troponin T 120 Minute 72.51 ng/L (0-15) H 08/23/22 10:26 Delta Troponin T -1.49 ABS# (0-10) L 08/23/22 10:26 NT-Pro-B Natriuret Pep 5804 pg/mL (0-125) H 08/23/22 08:17 Total Protein 6.7 g/dL (6.6-8.7) 08/23/22 08:17 Albumin 3.2 g/dL (3.5-5.2) L 08/23/22 08:17 Globulin 3.5 g/dL (1.3-4.6) 08/23/22 08:17 TSH 0.33 uIU/mL (0.27-4.20) 08/23/22 10:26 Urine Color Yellow (Yellow) 08/23/22 09:13 Urine Appearance Clear (CLEAR) 08/23/22 09:13 Urine pH 5 (5-7) 08/23/22 09:13 Ur Specific Surveyor 1.020 (1.005-1.030) 08/23/22 09:13 Urine Protein Trace (Negative) 08/23/22 09:13 Urine Glucose (UA) Norm (Normal) 08/23/22 09:13 Urine Ketones 1+ (Negative) H 08/23/22 09:13 Urine Blood Neg (Negative) 08/23/22 09:13 Urine Nitrate Negative (Negative) 08/23/22 09:13 Urine Bilirubin Neg (Negative) 08/23/22 09:13 Urine Urobilinogen Neg mg/dL (Negative) 08/23/22 09:13 Ur Leukocyte Esterase Negative (Negative) 08/23/22 09:13 Urine RBC 0-4 /hpf (0-2) H 08/23/22 09:13 Urine WBC 0-4 /hpf (0-5) H 08/23/22 09:13 Ur Squamous Epith Cells 0-4 /hpf (0-5) H 08/23/22 09:13 Amorphous Sediment Not Reportable 08/23/22 09:13 Urine Bacteria Trace /hpf (NONE) 08/23/22 09:13 Hyaline Casts 0-4 /lpf H 08/23/22 09:13 Urine Mucus 1+ /hpf 08/23/22 09:13 Discharge Plan Discharge Patient Disposition: Admitted As Inpatient Admit Provider: Marty Taylor Clinical Impression: Congestive heart failure, COPD with acute exacerbation, Ascending aortic aneurysm, Hydronephrosis Condition: Stable Coding Level of Care Code ED Server Security Administrator for Danielle Wing
--- NOTE | 2022-08-23 07:56 | CTR_ITS ---
PROCEDURE INFORMATION: Exam: CTA Chest With Contrast Exam date and time: 08/23/2022 8:40 AM Age: 66 years old Clinical indication: Fever and tachypnea; Prior surgery; Surgery type: Gb; Patient HX: Dyspnea/ tachycardia PT got about 20cc before iv came apart; Additional info: Dyspnea/tachycardia TECHNIQUE: Imaging protocol: Computed tomographic angiography of the chest with contrast. 3D rendering (Not supervised by radiologist): MIP and/or 3D reconstructed images were created by the technologist. Radiation optimization: All CT scans at this facility use at least one of these dose optimization techniques: automated exposure control; mA and/or kV adjustment per patient size (includes targeted exams where dose is matched to clinical indication); or iterative reconstruction. Contrast material: OMNI 350; Contrast volume: 78 ml; Contrast route: INTRAVENOUS (IV); REPORTING DATA: Count of CT and Cardiac NM exams in prior 12 months: This patient has received [address] and 0 known cardiac nuclear medicine studies in the 12 months prior to the current study. COMPARISON: 1. CR XR chest 1V portable [id number] 08/23/2022 7:[address] angio headneck* [id number] 01/07/2018 3:[address] abdomen pelvis wo con [id number] 08/18/2022 4:56 PM RADIATION DOSE METRICS: Total DLP (mGy-cm): 1058.2 FINDINGS: Pulmonary arteries: The pulmonary arteries are adequately opacified for evaluation to the subsegmental level. There is no filling defect to suggest embolism. 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 Aorta: There is ulcerated plaque at the aortic isthmus. Similar findings were partially imaged on 01/07/2018. The ascending aorta is dilated, measuring up to 5.1 cm diameter. Lungs: There is a benign calcified granuloma in the right upper lobe. There is no consolidation. There is subsegmental atelectasis in both lower lobes. There is diffuse bronchial wall thickening and luminal narrowing in the lower lobes, more apparent on the left. Pleural spaces: There is no pleural effusion or pneumothorax. Heart: There is moderate cardiac enlargement. There is no pericardial effusion. Coronary arteries: There is severe coronary artery calcification. Lymph nodes: There is no mediastinal or hilar lymphadenopathy. Diaphragm: There is a small sliding-type hiatal hernia. Gallbladder and bile ducts: There is pneumobilia suggesting prior sphincterotomy. Spleen: The spleen is mildly enlarged. Intraperitoneal space: There is intraperitoneal free air in the anterior upper abdomen. Bones/joints: Bones are unremarkable. Soft tissues: The extrathoracic soft tissues are unremarkable. CT/CT angio chest PE protcl [id number] IMPRESSION: 1. No pulmonary embolism. 2. 5.1 cm aneurysm of the ascending aorta with ulcerated plaque at the isthmus. Recommend surgical consultation. In general, aortic diameters of 5.[address] patients at high risk for rupture and should be considered for intervention. If connective tissue diseases such as Marfan or Jenn-Danlos disease is known, then a diameter of 5 cm prompts consideration of prophylactic aortic root replacement. 3. Bronchial wall thickening in the lower lobes without consolidation. Possible acute bronchitis. 4. Intraperitoneal free air consistent with recent cholecystectomy. 5. Incidental findings above.
[2022-08-23 08:23] LABS: Basophils % 0.3 %; Eosinophils # 0.1 10^3/uL (0.0-0.8); Eosinophils % 1.1 %; Hematocrit 38.1 % (42.0-52.0); Hemoglobin 11.5 g/dL (11.7-16.6); Lymphocytes # 0.5 10^3/uL (0.8-4.8); Mean Corpuscular HGB Conc 30.2 g/dL (30.0-36.0); Mean Corpuscular Hemoglobin 25.8 pg (28.0-34.0); Mean Corpuscular Volume 85.6 fl (80-94); Mean Platelet Volume 10.6 fL (7.4-10.4); Monocytes # 1.1 10^3/uL (0.2-0.9); Monocytes % 9.2 %; Neutrophils # 9.67 10^3/uL (1.8-7.7); Neutrophils % 84.9 %; Nucleated Red Blood Cells % 0 %; Platelet Count 236 10^3/cmm (130-400); Red Blood Count 4.45 10^6/uL (4.1-5.3); Red Cell Distribution Width 15.5 % (12.1-15.1); White Blood Count 11.4 10^3/uL (4.0-10.0)
[2022-08-23 08:42] LABS: Alanine Aminotransferase 40 U/L (0-41); Albumin Level 3.2 g/dL (3.5-5.2); Alkaline Phosphatase 127 U/L (40-130); Anion Gap 14.9 (5-19); Aspartate Amino Transferase 38 U/L (0-40); Blood Urea Nitrogen 33 mg/dL (8-23); Carbon Dioxide 28 mmol/L (22-29); Chloride 96 mmol/L (98-107); Globulin 3.5 g/dL (1.3-4.6); Glomerular Filtration Rate 50.9 mL/min (90-130); Glucose 134 mg/dL (65-115); Osmolality Calculated 289 mOsm/kg (285-295); Potassium 3.9 mmol/L (3.5-5.1); Sodium 135 mmol/L (136-145); Total Bilirubin 0.5 mg/dL (0.15-1.2); Total Protein 6.7 g/dL (6.6-8.7)
[2022-08-23 08:43] LABS: Troponin(5th) Baseline 74 ng/L (0-15)
[2022-08-23] MEDS: iohexol 350 mg/mL 500 mL Btl (per mL) IV (08:59)
[2022-08-23 09:39] LABS: Bilirubin Urine Neg (Negative); Blood Urine Neg (Negative); Glucose Urine UA Norm (Normal); Ketones Urine 1+ (Negative); Leukocyte Esterase Urine Negative (Negative); Nitrate Urine Negative (Negative); Protein Urine Trace (Negative); Urine Appearance Clear (CLEAR); Urine Color Yellow (Yellow); Urobilinogen Urine Neg (Negative); pH Urine 5 (5-7)
[2022-08-23 09:40] LABS: Add Urine Microscopic? YES
[2022-08-23 09:43] LABS: Add Urine Culture? No; Bacteria Urine TRACE /hpf; Hyaline Casts Urine 0-4 /lpf; Mucus Urine 1+ /hpf; RBC Urine 0-4 /hpf (0-2); Squamous Epithelial Cell Urine 0-4 /hpf (0-5); WBC Urine 0-4 /hpf (0-5)
--- NOTE | 2022-08-23 09:47 | ECG_ITS ---
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 Measurements Intervals [place] Rate: 108 P: 62 [place]: 164 QRS: 125 QRSD: 104 T: -15 QT: 337 QTc: 453 Interpretive Statements SINUS TACHYCARDIA POSSIBLE RIGHT VENTRICULAR HYPERTROPHY [SOME/ALL OF: PROMINENT R IN V1, LATE TRANSITION, RAD, ROSANGELA, SSS] MINIMAL ST DEPRESSION [0.025+ mV ST DEPRESSION] ABNORMAL QRS-T ANGLE [QRS-T AXIS DIFFERENCE > 60] Compared to ECG 08/23/2022 07:51:18 ST (T wave) deviation now present Electronically Signed On 08-23-2022 11:00:32 CDT by Anam Moralez M.D. [id number]
--- NOTE | 2022-08-23 10:03 | CTR_ITS ---
PROCEDURE INFORMATION: Exam: CT Abdomen And Pelvis Without Contrast Exam date and time: 08/23/2022 10:10 AM Age: 66 years old Clinical indication: Abdominal pain; Prior surgery; Surgery type: Gb TECHNIQUE: Imaging protocol: Computed tomography of the abdomen and pelvis without contrast. Radiation optimization: All CT scans at this facility use at least one of these dose optimization techniques: automated exposure control; mA and/or kV adjustment per patient size (includes targeted exams where dose is matched to clinical indication); or iterative reconstruction. REPORTING DATA: Count of CT and Cardiac NM exams in prior 12 months: This patient has received [address] and 0 known cardiac nuclear medicine studies in the 12 months prior to the current study. COMPARISON: 1. MR MRCP [id number] 08/18/2022 6:[address] abdomen pelvis wo con [id number] 08/18/2022 4:56 PM 3. MR lumbar spine wo con* [id number] 05/17/2022 8:42 AM RADIATION DOSE METRICS: Total DLP (mGy-cm): 1229.03 FINDINGS: Lungs: There is subsegmental atelectasis in the lung bases. Liver: No hepatic parenchymal abnormality. Gallbladder and bile ducts: The gallbladder is absent. There are surgical clips in the gallbladder fossa. The extrahepatic and central intrahepatic ducts in the left lobe contains gas consistent with sphincterotomy and stent placement. The biliary stent is appropriately positioned in the distal common bile duct. The distal margin of the stent is in the duodenal lumen. Pancreas: There is moderate atrophy of the pancreas. No sign of acute pancreatitis. Spleen: The spleen is unremarkable. Adrenal glands: The adrenal glands are unremarkable. Kidneys and ureters: There is mild right hydronephrosis and diffuse hydroureter. The ureter is progressively dilated distally to the level of the ureterovesical junction where there is high-grade focal narrowing. No filling defect. There is no hydronephrosis or ureteral dilation on the left. Renal collecting systems are filled with contrast which could obscure stones. Stomach and bowel: The stomach is decompressed, preventing meaningful evaluation of wall thickness. There is mild edema along the serosal surface of the descending duodenum which is likely reactive edema related to surgical changes in the right upper quadrant. The small bowel is nondilated. There is mild sigmoid colonic diverticulosis without evidence of diverticulitis. Appendix: The appendix is normal. Intraperitoneal space: Small volume of intraperitoneal free air in the upper abdomen consistent with recent abdominal surgery. There is trace perihepatic fluid and mesenteric edema extending to gallbladder fossa. There is no organized abscess. Vasculature: There is moderate aortic atherosclerotic disease. Lymph nodes: There is no lymphadenopathy in the retroperitoneum, mesentery, pelvis or inguinal regions. Urinary bladder: The urinary bladder is unremarkable. Reproductive: The prostate and seminal vesicles are unremarkable. Bones/joints: There is a chronic nondisplaced pars defect on the left at L5. No spondylolisthesis. There is moderate degenerative disease in the lumbar spine. The pelvis and hips are unremarkable. Soft tissues: There is a moderate-sized fat containing umbilical hernia. There is well-defined lobulated soft tissue density surrounding the distal aorta and IVC extending to the bifurcation, similar to findings on 05/17/2022. This is suggestive of retroperitoneal fibrosis. CT/CT abdomen pelvis wo con [id number] IMPRESSION: 1. Cholecystectomy. Expected postsurgical edema in the right upper quadrant with trace perihepatic fluid and small volume intraperitoneal free air. No abscess. No sign of significant bile leak. 2. Appropriately positioned patent distal common bile duct stent. 3. Dilated distal right ureter and mild right hydronephrosis. Probable stricture at the ureterovesical junction. No stone or mass is visible. Ureteral findings are similar to 08/18/2022. Hydronephrosis is mildly increased. Acute obstruction is not suspected. 4. Incidental findings above.
[2022-08-23] MEDS: ipratropium-albuterol 3 mL Neb INHALATION ×3 (10:17→21:11)
[2022-08-23] MEDS: dexamethasone 10 mg/mL INJ IVP (10:20)
[2022-08-23 10:24] LABS: NT Pro B Type Natriuretic Pept 5804 pg/mL (0-125)
[2022-08-23 10:55] LABS: Troponin 5 2HR 72.51 ng/L (0-15)
[2022-08-23 11:06] LABS: Troponin 5 2HR Delta -1.49 ABS# (0-10)
[2022-08-23] MEDS: aspirin 81 mg Chew Tablet 324 MG PO (11:26)
[2022-08-23] MEDS: nitroglycerin drip 50 MG/250 ML PREMIX IV (11:27)
--- NOTE | 2022-08-23 12:49 | P.HP_ITS ---
Providers/Chief Complaint Admitting Physician: Marty Taylor MD Primary Care Provider: LAURI Blackwood Chief Complaint: SOB/ low ox History of Present Illness Yannick Lucas is a 66 year old male presenting to the emergency department with shortness of breath. He was recently at [facility], for cholecystectomy. Following the procedure he had an ERCP and stent placed. Records regarding this are not yet available. He was sent home yesterday. Upon arriving home he was short of breath, and oxygen level was noted to be low, mid 70s, by his daughter when she checked it after climbing his porch. He reported a little bit of burning when he took a deep breath. She has some oxygen which she gave him last night and when he was not better this morning brought him in. He has been coughing on occasion, wheezing, and coughing up some dark substance. No hemopt ysis. No fever. May have received antibiotics in the hospital but none on discharge home. No diarrhea, or vomiting. Denies any persistent chest discomfort. Does have swelling, for which he has taken diuretics in the past. No particular history of heart failure. Some abdominal pain at surgical site. He has been passing flatus. Feels better currently, after being placed on oxygen. Other emergency department treatment included Solu-Medrol, DuoNeb. Review of Systems General: Reports: 10 or more systems reviewed and unremarkable except in HPI and below Const: Denies: fever(s) or chills Card: Reports: chest pain and swelling of feet/ankles Resp: Reports: dyspnea and productive cough; Denies: hemoptysis GI: Reports: abdominal pain; Denies: nausea, vomiting, hematochezia or melena Medications/Allergies Home Medications Medication Instructions Recorded Confirmed Last Taken Type hydrochlorothiazide 25 mg tablet See Rx Instructions .Route 10/06/20 08/23/22 Unknown Rx .COMPLEX #30 tabs aspirin 81 mg tablet,delayed 81 mg PO DAILY 01/23/22 08/23/22 Unknown History release (Adult Aspirin Regimen) metoprolol succinate 50 mg 50 mg PO DAILY 01/23/22 08/23/22 Unknown History tablet,extended release 24 hr albuterol sulfate 90 mcg/actuation 2 puff inhalation Q4H PRN 08/23/22 08/23/22 Unknown History aerosol inhaler Shortness Of Breath Or Wheezing atorvastatin 80 mg tablet 80 mg PO QPM 08/23/22 08/23/22 Unknown History hydrocodone 5 mg-acetaminophen 325 1 tab PO Q8H PRN Pain 08/23/22 08/23/22 Unknown History mg tablet Allergies Allergy/AdvReac Type Severity Reaction Status Date / Time penicillin G Allergy Unknown Verified 08/23/22 08:40 Penicillins Allergy ADR-Dizzine Verified 08/23/22 08:40 ss PFSH Acute PFSH: Medical History Carotid stenosis Chronic kidney disease COPD (chronic obstructive pulmonary disease) CVA (cerebral vascular accident) Hyperlipidemia Hypertension TYLER (obstructive sleep apnea) Quit smoking Surgical History History of biliary duct stent placement History of cholecystectomy Family History Mother Hypertension CAD (coronary artery disease) Cancer Father CAD (coronary artery disease) Mother CAD (coronary artery disease) Cancer Lung Father CAD (coronary artery disease) Alcohol abuse Social History Smoking and tobacco status: former smoker Alcohol intake: current Alcohol intake frequency: holidays/special occasions only Alcohol type: beer Vitals/I&O/Wt Last Vital Signs Pulse 107 H 08/23/22 12:46 Resp 18 08/23/22 12:46 BP 122/76 08/23/22 12:46 Pulse Ox 97 08/23/22 12:46 O2 Del Method Nasal Cannula 08/23/22 12:22 O2 Flow Rate 2 08/23/22 11:33 Weight last 48 hrs Weight 129.727 kg Weight 129.727 kg Physical Exam Narrative: General exam is white male, no distress, currently on oxygen per nasal cannula. HEENT: Atraumatic normocephalic. Oropharynx clear. Neck is supple no lymphadenopathy thyromegaly Cardiovascular slight tachycardia, no murmur Lungs bilateral expiratory wheezes. No crackles. Abdomen is soft. Slight distention. Slight tenderness around surgical sites. Umbilical hernia is noted which is reducible. Positive bowel sounds. Extremities trace to 1+ edema bilaterally Skin no rash Neuro no obvious focal deficits. Data 08/23/22 08:17 08/23/22 08:17 Other Labs: Calcium 8.0 LFTs normal Troponin 74 with repeat of 72 Albumin 3.2 Urinalysis negative Chest x-ray by my read scoliosis, some atherosclerotic disease, a little bit of fluid in the right fissure CTA chest demonstrates no pulmonary embolism. 5.1 cm aneurysm of the ascending or aorta with ulcerated plaque is noted Bronchial wall thickening in the lower lobes is noted Intraperitoneal free air consistent with recent cholecystectomy Abdomen pelvis CT postcholecystectomy. No abscess. Appropriately positioned stent. Dilated right ureter and mild right hydro question stricture ureterovesical junction EKG demonstrates sinus tachycardia, borderline right axis deviation, nonspecific ST-T wave changes. BNP is 5800 A&P Assessment and plan (1) Acute heart failure: The patient presented with shortness of breath. He has increased total body fluid manifested by edema. He has some fluid along his right lung fissure on chest x-ray. His BNP is elevated. This is consistent with acute heart failure, most likely diastolic. Lasix 40 mg IV x1 Agree with trending troponins. Troponin is slightly elevated likely from heart strain. Check echocardiogram Check TSH Reevaluate for repeat Lasix dose tomorrow morning BMP tomorrow (2) COPD with acute exacerbation: Patient is actively wheezing, has a diagnosis of COPD. Emergency department has given IV steroids. Continue prednisone 40 mg daily Budesonide twice daily, DuoNeb every 4 hours Doxycycline 100 mg twice daily Wean oxygen as tolerated (3) Ascending aortic aneurysm: Incidentally found ascending aortic aneurysm, with some ulcerated plaque. Will need outpatient follow-up with vascular surgery Already on statin Add low-dose beta-radha (4) Hydronephrosis: Incidentally found right hydronephrosis, likely stricture. Urinalysis is negative. Will need outpatient urology Plan Recent cholecystectomy, with ERCP and stent placement following. Follow LFTs. Multiple other medical problems as outlined in past medical history Attestations Medical Necessity Statement*: Will require greater than 2 midnight stay for evaluation and treatment of acute heart failure, COPD exacerbation Diagnoses Acute heart failure I50.9 COPD with acute exacerbation J44.1 Ascending aortic aneurysm I71.21 Hydronephrosis N13.30 Time Spent (min) 57
--- NOTE | 2022-08-23 13:04 | USCV_ITS ---
Yannick Lucas Age: 66 Gender: M : 1955 Exam Date: 08/23/2022 13:51 Ordering Phys: Marty Taylor MD Technologist: TERRI Exam Location: [facility] [place] Indication: heart failure BP: / HR: 101 Rhythm: Sinus Technical Quality: Suboptimal MEASUREMENTS (Male / Female) Normal Values 2D ECHO LV Diastolic Diameter PLAX 5.6 cm 4.2 - 5.9 / 3.9 - 5.3 cm LV Systolic Diameter PLAX 4.9 cm IVS Diastolic Thickness 1.2 cm 0.6 - 1.0 / 0.6 - 0.9 cm IVS Systolic Thickness 1.5 cm LVPW Diastolic Thickness 1.0 cm 0.6 - 1.0 / 0.6 - 0.9 cm LVPW Systolic Thickness 1.4 cm LVOT Diameter 2.6 cm LV Ejection Fraction 2D Teich 19.3 % LV Ejection Fraction MOD 2C 44.0 % LV Ejection Fraction 2C AL 42.0 % LA Diameter 4.1 cm M-MODE Aortic Annulus Diameter 4.0 cm LA Ao Ratio MM 1.1 MV E Point Septal Separation 1.0 cm DOPPLER AV Peak Velocity 122.0 cm/s LVOT Peak Velocity 96.0 cm/s AV Area Cont Eq vti 5.8 cm squared AV Area Cont Eq pk 4.1 cm squared MV Area PHT 5.0 cm squared Mitral E to A Ratio 0.8 MV E' Velocity 40.5 cm/s Mitral E to MV E' Ratio 9.0 Mitral E to LV E' Lateral Ratio 7.0 Mitral E to LV E' Septal Ratio 13.0 TV Peak E Velocity 60.0 cm/s FINDINGS Left Ventricle The examination is technically limited. The ventricle is probably normal in size and function. The ejection fraction is estimated at 55%. No obvious wall motion disturbances. Grade 1 diastolic dysfunction Right Ventricle The right ventricle is not well seen . It appears mildly enlarged but functions normally. Right Atrium The right atrium is normal in size. Left Atrium The left atrium is normal in size. Mitral Valve Structurally normal mitral valve. No mitral valve regurgitation. Aortic Valve Structurally normal aortic valve without significant sclerosis or stenosis. There is no aortic regurgitation. Tricuspid Valve Structurally normal tricuspid valve without significant stenosis or regurgitation. Pulmonary artery systolic pressure is normal. Pulmonic Valve Pulmonic valve not well visualized. Pericardium Normal pericardium without effusion. Aorta Normal ascending aorta dimension. IVC Inferior vena cava not visualized. CONCLUSIONS The examination is technically limited. The ventricle is probably normal in size and function. The ejection fraction is estimated at 55%. No obvious wall motion disturbances. Grade 1 diastolic dysfunction. The right ventricle is not well seen . It appears mildly enlarged but functions normally. No change from the previous study done 01/08/2018. Dr. Marlon Sears MD (Electronically Signed) Final Date: 24 Aug 2022 09:34 S
[2022-08-23 13:26] LABS: Estmated Average Glucose 128; Hemoglobin A1C 6.1 % (4.0-6.0)
[2022-08-23 13:35] LABS: Thyroid Stimulating Hormone 0.33 uIU/mL (0.27-4.20)
[2022-08-23] MEDS: FUROsemide 10 mg/mL SDV 4mL 40 MG IVP (13:35)
[2022-08-23 14:55] LABS: Troponin 5 6HR 60.67 ng/L (0-15)
[2022-08-23] MEDS: oxyCODONE 5 mg IR Tab/Cap PO ×2 (15:04→21:37)
[2022-08-23 16:07] LABS: Adenovirus Not Detected (NOT DETECT); Chlamydia Pneumoniae Not Detected (NOT DETECT); Coronavirus 229E,HKU1,NL63,OC4 Not Detected (NOT DETECT); Human Metapneumovirus Not Detected (NOT DETECT); Human Rhinovirus/Enterovirus Not Detected (NOT DETECT); Influenza A Not Detected (NOT DETECT); Influenza A H1 Not Detected (NOT DETECT); Influenza A H1-2009 Not Detected (NOT DETECT); Influenza A H3 Not Detected (NOT DETECT); Influenza B Not Detected (NOT DETECT); Mycoplasma Pneumoniae Not Detected (NOT DETECT); Parainfluenza Virus Type 1 Not Detected (NOT DETECT); Parainfluenza Virus Type 2 Not Detected (NOT DETECT); Parainfluenza Virus Type 3 Not Detected (NOT DETECT); Parainfluenza Virus Type 4 Not Detected (NOT DETECT); Respiratory Syncytial Virus A Not Detected (NOT DETECT); Respiratory Syncytial Virus B Not Detected (NOT DETECT); SARS-COV-2 Not Detected (NOT DETECT)
[2022-08-23] MEDS: doxycycline 100 mg Tablet PO (18:51)
[2022-08-23] MEDS: budesonide 0.5 mg/2 mL Neb INHALATION (21:10)
[2022-08-23] MEDS: metoprolol tartrate 25 mg Tablet 12.5 MG PO (21:33)
[2022-08-24] VITALS (16 sets, daily range): BP systolic 124–139; BP diastolic 72–88; PULSE 63–109; RESP 14–27; TEMP 36.7–36.9; O2SAT 94–97
[2022-08-24] MEDS: ipratropium-albuterol 3 mL Neb INHALATION ×7 (00:06→23:08)
[2022-08-24] MEDS: budesonide 0.5 mg/2 mL Neb INHALATION ×2 (07:58→20:10)
[2022-08-24] MEDS: doxycycline 100 mg Tablet PO ×2 (09:53→17:13)
[2022-08-24] MEDS: metoprolol tartrate 25 mg Tablet 12.5 MG PO ×2 (09:53→20:58)
[2022-08-24] MEDS: predniSONE 20 mg Tablet 40 MG PO (09:53)
--- NOTE | 2022-08-24 11:00 | PM.PN ---
Subjective Subjective: Seen at bedside today admitted for COPD exacerbation and new onset HFpEF Pt states he is feeling improved today compared to admission. still having some SOB and swelling in legs. Denies CP, palpitations, N/V/D/C, abd pain. Vitals/I&O/Wt Last Vital Signs Temp 98.0 F 08/24/22 04:00 Pulse 78 08/24/22 08:00 Resp 19 H 08/24/22 08:00 BP 139/88 08/24/22 04:00 Pulse Ox 96 08/24/22 08:00 O2 Del Method Nasal Cannula 08/24/22 08:00 O2 Flow Rate 2 08/24/22 08:00 08/23/22 08/24/22 08/24/22 22:59 06:59 14:59 Intake Total 240 / 244.55 500 / 744.55 120 / 120 Output Total 300 / 300 Balance 240 / 244.55 200 / 444.55 120 / 120 Weight last 48 hrs Weight 331 lb 11.2 oz Weight 286 lb Weight 286 lb Physical Exam Narrative: General exam is white male, no distress, currently on oxygen per nasal cannula. HEENT: Atraumatic normocephalic. Oropharynx clear. Neck is supple no lymphadenopathy thyromegaly Cardiovascular; RRR, no murmur/rub/gallop. 1+ pitting edema bilateral legs Lungs distant lung sounds, mild bilateral expiratory wheezes. No crackles. Abdomen is soft. Slight distention. Slight tenderness around surgical sites. Umbilical hernia is noted which is reducible. Positive bowel sounds. Skin no rash Neuro no obvious focal deficits. Data 08/23/22 08:17 08/23/22 08:17 A&P Assessment and plan (1) Acute heart failure: ECHO: EF 55/5, G1 diastolic dysfunction given lasix 40mg IVP x 1 SOB and edema have improved troponins slightly elevated form heart strain but no NSTEMI/STEMI pending BMP from today will give another lasix 40mg (2) COPD with acute exacerbation: improved respiration. less wheezing Continue prednisone 40 mg daily Budesonide twice daily, DuoNeb every 4 hours Doxycycline 100 mg twice daily Wean oxygen as tolerated (3) Ascending aortic aneurysm: Incidentally found ascending aortic aneurysm, with some ulcerated plaque. Will need outpatient follow-up with vascular surgery Already on statin Add low-dose beta-radha (4) Hydronephrosis: Incidentally found right hydronephrosis, likely stricture. Urinalysis is negative. Will need outpatient urology Plan Recent cholecystectomy, with ERCP and stent placement following. Follow LFTs. pending report from FERGUSON Multiple other medical problems as outlined in past medical history Attestations Medical Necessity Statement*: heart failure Coding Level of Care Code 66049 Diagnoses Acute heart failure I50.9 COPD with acute exacerbation J44.1 Ascending aortic aneurysm I71.21 Hydronephrosis N13.30
[2022-08-24] MEDS: FUROsemide 10 mg/mL SDV 2mL 20 MG IVP (12:11)
[2022-08-24] MEDS: lactulose oral liq 20 gm/30 mL UDC 10 GM PO (12:11)
[2022-08-24 16:24] LABS: Alanine Aminotransferase 39 U/L (0-41); Albumin Level 3.2 g/dL (3.5-5.2); Alkaline Phosphatase 120 U/L (40-130); Aspartate Amino Transferase 32 U/L (0-40); Blood Urea Nitrogen 41 mg/dL (8-23); Calcium 8.3 mg/dL (8.5-10.5); Carbon Dioxide 29 mmol/L (22-29); Chloride 99 mmol/L (98-107); Globulin 3.4 g/dL (1.3-4.6); Glomerular Filtration Rate 60.8 mL/min (90-130); Glucose 282 mg/dL (65-115); Osmolality Calculated 306 mOsm/kg (285-295); Sodium 138 mmol/L (136-145); Total Bilirubin 0.2 mg/dL (0.15-1.2); Total Protein 6.6 g/dL (6.6-8.7)
[2022-08-25] VITALS (66 sets, daily range): BP systolic 125–145; BP diastolic 71–82; PULSE 8–106; RESP 15–36; TEMP 36.3–36.8; O2SAT 91–99
[2022-08-25] MEDS: ipratropium-albuterol 3 mL Neb INHALATION ×5 (03:22→19:24)
[2022-08-25 06:18] LABS: Hematocrit 36.4 % (42.0-52.0); Hemoglobin 10.6 g/dL (11.7-16.6); Lymphocytes # 0.5 10^3/uL (0.8-4.8); Lymphocytes % 5.3 %; Mean Corpuscular HGB Conc 29.1 g/dL (30.0-36.0); Mean Corpuscular Hemoglobin 25.2 pg (28.0-34.0); Mean Corpuscular Volume 86.7 fl (80-94); Mean Platelet Volume 11.2 fL (7.4-10.4); Monocytes # 0.8 10^3/uL (0.2-0.9); Monocytes % 8.5 %; Neutrophils % 85.7 %; Nucleated Red Blood Cells % 0 %; Platelet Count 273 10^3/cmm (130-400); Red Cell Distribution Width 15.9 % (12.1-15.1); White Blood Count 9.6 10^3/uL (4.0-10.0)
[2022-08-25] MEDS: budesonide 0.5 mg/2 mL Neb INHALATION ×2 (07:51→19:24)
[2022-08-25] MEDS: predniSONE 20 mg Tablet 40 MG PO (09:47)
[2022-08-25] MEDS: doxycycline 100 mg Tablet PO ×2 (09:47→17:21)
[2022-08-25] MEDS: metoprolol tartrate 25 mg Tablet 12.5 MG PO ×2 (09:47→20:33)
--- NOTE | 2022-08-25 11:52 | PM.PN ---
Subjective Subjective: Patient this morning was short of breath and tachycardic No signs of PE Echocardiogram showed preserved ejection fraction grade 1 diastolic dysfunction Currently on 3 L of oxygen Which is new onset I did inform the patient about his AAA 5.1 cm along right hydro nephrosis Vitals/I&O/Wt Last Vital Signs Temp 97.4 F L 08/25/22 07:55 Pulse 89 08/25/22 11:39 Resp 18 08/25/22 11:39 BP 143/82 08/25/22 07:55 Pulse Ox 99 08/25/22 11:39 O2 Del Method Nasal Cannula 08/25/22 11:39 O2 Flow Rate 3 08/25/22 11:39 08/24/22 08/25/22 08/25/22 22:59 06:59 14:59 Intake Total 1000 / 1520 1050 / 2570 Output Total 1200 / 1950 800 / 2750 Balance -200 / -430 250 / -180 Weight last 48 hrs Weight 148.189 kg Weight 150.457 kg Weight 129.727 kg Weight 129.727 kg Physical Exam Narrative: Currently patient is on 3 L Tachypneic and tachycardic Crackles at base of the lungs Abdomen distended umbilical hernia positive no active pain Nonfocal neuro exam DC 50 1+ edema of legs Data 08/25/22 05:55 08/24/22 15:10 A&P Assessment and plan (1) Congestive heart failure: (2) Hydronephrosis: (3) COPD with acute exacerbation: (4) Ascending aortic aneurysm: (5) Acute heart failure: (6) Quit smoking: (7) Basilar artery stenosis: Plan Acute preserved ejection fraction heart failure exacerbation Continue diuresis Acute hypoxia related to COPD exacerbation due to CHF exacerbation Wean oxygen if possible We will need home O2 eval tomorrow AAA 5.1 cm patient will need vascular referral at discharge Right hydronephrosis no active worsening of kidney function, patient making good urine at this point, I have informed patient to see urology down the road For COPD exacerbation continue prednisone ERCP with biliary stent no active worsening Plan to discharge him tomorrow if clinically stable Patient is full code Currently on 3 L Attestations Medical Necessity Statement*: Anticipating discharge by tomorrow if stable Diagnoses Congestive heart failure I50.9 Hydronephrosis N13.30 COPD with acute exacerbation J44.1 Ascending aortic aneurysm I71.21 Acute heart failure I50.9 Quit smoking Z87.891 Basilar artery stenosis I65.1
[2022-08-25] MEDS: bumetanide 0.25 mg/mL SDV 4 mL 1 MG IVP (12:31)
--- NOTE | 2022-08-25 17:35 | PC.NURSE ---
Patient reports that he cannot walk for home 02 evaluation because it hurts to walk but when nurse asks him about pain, especially pain when walking, he states he has none.
[2022-08-26] VITALS (11 sets, daily range): BP systolic 125–150; BP diastolic 70–77; PULSE 75–89; RESP 16–26; TEMP 36.6–36.8; O2SAT 87–97
[2022-08-26] MEDS: ipratropium-albuterol 3 mL Neb INHALATION ×3 (00:08→11:23)
[2022-08-26] MEDS: bumetanide 0.25 mg/mL SDV 4 mL 1 MG IVP (00:54)
[2022-08-26 04:22] LABS: Anion Gap 12.9 (5-19); Blood Urea Nitrogen 41 mg/dL (8-23); Calcium 8.2 mg/dL (8.5-10.5); Carbon Dioxide 32 mmol/L (22-29); Chloride 98 mmol/L (98-107); Glomerular Filtration Rate 60.8 mL/min (90-130); Glucose 127 mg/dL (65-115); Osmolality Calculated 300 mOsm/kg (285-295); Potassium 3.9 mmol/L (3.5-5.1); Sodium 139 mmol/L (136-145)
[2022-08-26] MEDS: budesonide 0.5 mg/2 mL Neb INHALATION (07:50)
[2022-08-26] MEDS: metoprolol tartrate 25 mg Tablet 12.5 MG PO (09:37)
[2022-08-26] MEDS: doxycycline 100 mg Tablet PO (09:37)
[2022-08-26] MEDS: predniSONE 20 mg Tablet 40 MG PO (09:37)
--- NOTE | 2022-08-26 09:38 | PM.DCS ---
Discharge Providers Date of Admission: 08/23/22 11:26 Date of Discharge: August 26, 2022 Attending Provider at Admission: Marty Taylor MD Attending Provider at Discharge: Marlon Arndt MD Primary Care Provider: LAURI Blackwood Diagnoses at Discharge Discharge Diagnosis (1) Congestive heart failure: Status: Acute (2) Hydronephrosis: Status: Acute (3) COPD with acute exacerbation: Status: Acute (4) Ascending aortic aneurysm: Status: Acute (5) Acute heart failure: Status: Acute (6) Quit smoking: Status: Acute (7) Basilar artery stenosis: Status: Acute Reason for Visit Reason for Visit: SOB/ low ox Hospital Course Hospital Course 66-year male who was admitted for shortness of breath, he was diagnosed with bronchitis he received antibiotics, remained afebrile, initially was requiring 4 to 5 L of oxygen, at home does not use oxygen, quit smoking 5 years ago, we were able to wean him off oxygen to 2 L, at the time of discharge she will get Symbicort and albuterol inhalers, echo revealed preserved ejection fraction, he was diagnosed with acute onset of diastolic CHF exacerbation and improved with IV diuretics, patient was asked to keep monitoring his weight on daily basis and note down his dry weight with Lasix 40 mg daily along potassium supplement. During this visit incidental finding of AAA 5.1 cm, at the time of discharge I have given him referral to see Dr. Huston in [place], I asked him to get it repaired within the next 6 months, for his blood pressure I have added lisinopril along hydrochlorothiazide and metoprolol. Daughter was at the bedside, all questions were answered, Patient also has right-sided hydronephrosis without any signs of obstruction he can see urologist down the road no urgency at this point. At this point vascular surgeon referral is important. Physical Exam Narrative: Patient is awake and alert Signs of daughters at the bedside S1, S2 Abdomen distended No audible stridor or wheezing Discharge Data Studies Completed and Pending Completed Studies During Hospitalization Category Date Time Status CT abdomen pelvis wo con [id number] Stat Cat Scan 08/23/22 10:[address] angio chest PE protcl [id number] Stat Cat Scan 08/23/22 07:56 Completed XR chest 1V portable [id number] Stat Exams 08/23/22 07:47 Completed CV. echo complete* [id number] Routine Ultrasound 08/23/22 13:04 Completed Radiology Impressions Chest X-Ray 08/23/22 07:47 Impression: Atherosclerosis. Chest CTA 08/23/22 07:56 IMPRESSION: 1. No pulmonary embolism. 2. 5.1 cm aneurysm of the ascending aorta with ulcerated plaque at the isthmus. Recommend surgical consultation. In general, aortic diameters of 5.[address] patients at high risk for rupture and should be considered for intervention. If connective tissue diseases such as Marfan or Jenn-Danlos disease is known, then a diameter of 5 cm prompts consideration of prophylactic aortic root replacement. 3. Bronchial wall thickening in the lower lobes without consolidation. Possible acute bronchitis. 4. Intraperitoneal free air consistent with recent cholecystectomy. 5. Incidental findings above. ADDENDUM: 08/23/22 0957 THIS REPORT CONTAINS FINDINGS THAT MAY BE CRITICAL TO PATIENT CARE. The findings were verbally communicated via telephone conference with LENO SOLIS at 9:56 AM CDT on 08/23/2022. The findings were acknowledged and understood. Abdomen/Pelvis CT 08/23/22 10:03 IMPRESSION: 1. Cholecystectomy. Expected postsurgical edema in the right upper quadrant with trace perihepatic fluid and small volume intraperitoneal free air. No abscess. No sign of significant bile leak. 2. Appropriately positioned patent distal common bile duct stent. 3. Dilated distal right ureter and mild right hydronephrosis. Probable stricture at the ureterovesical junction. No stone or mass is visible. Ureteral findings are similar to 08/18/2022. Hydronephrosis is mildly increased. Acute obstruction is not suspected. 4. Incidental findings above. Laboratory Results WBC 9.6 10^3/uL (4.0-10.0) 08/25/22 05:55 RBC 4.20 10^6/uL (4.1-5.3) 08/25/22 05:55 Hgb 10.6 g/dL (11.7-16.6) L 08/25/22 05:55 Hct 36.4 % (42.0-52.0) L 08/25/22 05:55 MCV 86.7 fl (80-94) 08/25/22 05:55 MCH 25.2 pg (28.0-34.0) L 08/25/22 05:55 MCHC 29.1 g/dL (30.0-36.0) L 08/25/22 05:55 RDW 15.9 % (12.1-15.1) H 08/25/22 05:55 Plt Count 273 10^3/cmm (130-400) 08/25/22 05:55 MPV 11.2 fL (7.4-10.4) H 08/25/22 05:55 Neut % (Auto) 85.7 % 08/25/22 05:55 Lymph % (Auto) 5.3 % 08/25/22 05:55 [place] % (Auto) 8.5 % 08/25/22 05:55 Eos % (Auto) 0.0 % 08/25/22 05:55 Baso % (Auto) 0.0 % 08/25/22 05:55 Neut # (Auto) 8.20 10^3/uL (1.8-7.7) H 08/25/22 05:55 Lymph # (Auto) 0.5 10^3/uL (0.8-4.8) L 08/25/22 05:55 [place] # (Auto) 0.8 10^3/uL (0.2-0.9) 08/25/22 05:55 Eos # (Auto) 0.0 10^3/uL (0.0-0.8) 08/25/22 05:55 Baso # (Auto) 0.0 10^3/uL (0.0-0.1) 08/25/22 05:55 Nucleated RBC % (auto) 0 % 08/25/22 05:55 Nucleated RBCs # 0.0 /100WBC 08/25/22 05:55 Sodium 139 mmol/L (136-145) 08/26/22 03:32 Potassium 3.9 mmol/L (3.5-5.1) 08/26/22 03:32 Chloride 98 mmol/L (98-107) 08/26/22 03:32 Carbon Dioxide 32 mmol/L (22-29) H 08/26/22 03:32 Anion Gap 12.9 (5-19) 08/26/22 03:32 BUN 41 mg/dL (8-23) H 08/26/22 03:32 Creatinine 1.2 mg/dL (0.7-1.2) 08/26/22 03:32 GFR Calculation 60.8 mL/min (90-130) L 08/26/22 03:32 Glucose 127 mg/dL (65-115) H 08/26/22 03:32 Estimat Average Glucose 128 08/23/22 08:17 Hemoglobin A1c 6.1 % (4.0-6.0) H 08/23/22 08:17 Calculated Osmolality 300 mOsm/kg (285-295) H 08/26/22 03:32 Calcium 8.2 mg/dL (8.5-10.5) L 08/26/22 03:32 Total Bilirubin 0.2 mg/dL (0.15-1.2) 08/24/22 15:10 AST 32 U/L (0-40) 08/24/22 15:10 ALT 39 U/L (0-41) 08/24/22 15:10 Alkaline Phosphatase 120 U/L (40-130) 08/24/22 15:10 Troponin T Baseline 74 ng/L (0-15) H 08/23/22 08:17 Troponin T 120 Minute 72.51 ng/L (0-15) H 08/23/22 10:26 Delta Troponin T -1.49 ABS# (0-10) L 08/23/22 10:26 Troponin T Hi Sens 6Hr 60.67 ng/L (0-15) H 08/23/22 14:12 Troponin T Hi Sens 6Hr Delta -13.33 ng/L (0-12) L 08/23/22 14:12 NT-Pro-B Natriuret Pep 5804 pg/mL (0-125) H 08/23/22 08:17 Total Protein 6.6 g/dL (6.6-8.7) 08/24/22 15:10 Albumin 3.2 g/dL (3.5-5.2) L 08/24/22 15:10 Globulin 3.4 g/dL (1.3-4.6) 08/24/22 15:10 TSH 0.33 uIU/mL (0.27-4.20) 08/23/22 10:26 Urine Color Yellow (Yellow) 08/23/22 09:13 Urine Appearance Clear (CLEAR) 08/23/22 09:13 Urine pH 5 (5-7) 08/23/22 09:13 Ur Specific [place] 1.020 (1.005-1.030) 08/23/22 09:13 Urine Protein Trace (Negative) 08/23/22 09:13 Urine Glucose (UA) Norm (Normal) 08/23/22 09:13 Urine Ketones 1+ (Negative) H 08/23/22 09:13 Urine Blood Neg (Negative) 08/23/22 09:13 Urine Nitrate Negative (Negative) 08/23/22 09:13 Urine Bilirubin Neg (Negative) 08/23/22 09:13 Urine Urobilinogen Neg mg/dL (Negative) 08/23/22 09:13 Ur Leukocyte Esterase Negative (Negative) 08/23/22 09:13 Urine RBC 0-4 /hpf (0-2) H 08/23/22 09:13 Urine WBC 0-4 /hpf (0-5) H 08/23/22 09:13 Ur Squamous Epith Cells 0-4 /hpf (0-5) H 08/23/22 09:13 Amorphous Sediment Not Reportable 08/23/22 09:13 Urine Bacteria Trace /hpf (NONE) 08/23/22 09:13 Hyaline Casts 0-4 /lpf H 08/23/22 09:13 Urine Mucus 1+ /hpf 08/23/22 09:13 Coronavirus 229E (PCR) Not detected (NOT DETECT) 08/23/22 13:16 SARS-CoV-2 (PCR) Not detected (NOT DETECT) 08/23/22 13:16 Vitals Last Vital Signs Temp 98.2 F 08/26/22 07:35 Pulse 89 08/26/22 07:59 Resp 16 08/26/22 07:50 BP 150/77 08/26/22 07:35 Pulse Ox 97 08/26/22 07:50 O2 Del Method Nasal Cannula 08/26/22 07:50 O2 Flow Rate 2 08/26/22 07:50 Discharge Plan Discharge Patient Disposition: Home Condition: Stable Prescriptions: New furosemide [Lasix] 40 mg tablet 40 mg PO DAILY Qty: 60 5RF potassium chloride 10 mEq tablet extended release 10 meq PO DAILY Qty: 60 3RF lisinopril 20 mg tablet 20 mg PO DAILY Qty: 30 3RF doxycycline monohydrate 100 mg Tablet 100 mg PO BID Qty: 6 0RF budesonide-formoterol [Symbicort] 80-4.5 mcg/actuation HFA aerosol inhaler 1 inh inhalation BID 30 Days Qty: 10.2 5RF Spiriva Respimat 1.25 mcg/actuation mist 2 inh inhalation DAILY Qty: 4 4RF Continued hydrochlorothiazide 25 mg tablet See Rx Instructions .ROUTE .COMPLEX Qty: 30 0RF Dose Instruction: TAKE 1 TABLET BY MOUTH DAILY Rx Instructions: TAKE 1 TABLET BY MOUTH DAILY hydrocodone-acetaminophen 5-325 mg tablet 1 tab PO Q8H PRN (Reason: Pain) albuterol sulfate 90 mcg/actuation HFA aerosol inhaler 2 puff INHALATION Q4H PRN (Reason: Shortness Of Breath Or Wheezing) metoprolol succinate 50 mg tablet extended release 24 hr 50 mg PO DAILY Qty: 60 0RF aspirin [Adult Aspirin Regimen] 81 mg tablet,delayed release (DR/EC) 81 mg PO DAILY Qty: 60 0RF Changed atorvastatin 80 mg tablet 80 mg PO QPM Qty: 60 0RF Discharge Orders: Discharge Order (Routine); Ordered 08/26/22 Ordered By: Marlon Arndt Referrals: Elda Patricio FNP [Primary Care Provider] - Royce Huston MD [Referring] - 1 week (AAA 5.1 cm ) Discharge Diet: Cardiac Discharge Activity: Increase activity as tolerated Patient Instructions: Abdominal Aortic Aneurysm, Lisinopril (By mouth) (Prinivil, Zestril), Furosemide (By mouth) (Lasix), Doxycycline (By mouth), Potassium Chloride (By mouth), Tiotropium (By breathing) (Spiriva, Spiriva Respimat), Budesonide/Formoterol (By breathing) (Symbicort), Heart Failure (ED), CHF Stoplight, COPD Stoplight, Opioid Safety Discharge Attestations Time Spent in Discharge Care*: greater than 30 min Quality Metrics Clinical Quality Measures [ No reported AMI, CVA or VTE this stay] Coding Level of Care Code Acute Code for Chg Fwd Diagnoses Congestive heart failure I50.9 Hydronephrosis N13.30 COPD with acute exacerbation J44.1 Ascending aortic aneurysm I71.21 Acute heart failure I50.9 Quit smoking Z87.891 Basilar artery stenosis I65.1
--- NOTE | 2022-08-26 10:14 | PC.SOCIAL ---
Pg 2 IMM Explained to pt Pg 2 IMM. No questions voiced. Provided pt a copy. Initialed, dated,& timed a copy & placed in chart.
== END 2022-08-26 11:31 | disposition home or self-care (01) | DRG 291 ==
LOC: ER 08:43 → CSU 11:37
PROVIDERS: Family Medicine; Admitting Provider Internal Medicine; Emergency Provider Family Medicine; PCP Nurse Practitioner Family; Visit Provider Internal Medicine
DX: I13.0 Hypertensive heart and chronic kidney disease with heart failure and stage 1 through stage 4 chronic kidney disease, or unspecified chronic kidney disease (principal); I50.31 Acute diastolic (congestive) heart failure; J44.0 Chronic obstructive pulmonary disease with (acute) lower respiratory infection; J44.1 Chronic obstructive pulmonary disease with (acute) exacerbation; N13.30 Unspecified hydronephrosis; N18.9 Chronic kidney disease, unspecified; J20.9 Acute bronchitis, unspecified; Z87.891 Personal history of nicotine dependence; I71.40 Abdominal aortic aneurysm, without rupture, unspecified; Z79.891 Long term (current) use of opiate analgesic; Z79.51 Long term (current) use of inhaled steroids; Z79.82 Long term (current) use of aspirin; Z86.73 Personal history of transient ischemic attack (TIA), and cerebral infarction without residual deficits; G47.33 Obstructive sleep apnea (adult) (pediatric)
CPT/HCPCS: 36415; 71045; 71275; 74176; 80048; 80053; 81001; 81015; 83036; 83880; 84443; 84484; 85025; 87635; 93005; 93306; 94640; 94760; 96374; 96375; 96376; 99285; J1100; J1940; J3490; J7512; J7626; Q9967

== ENCOUNTER → 2022-10-10 13:06 | Outpatient (BNVA) | payer MEDICARE, SELFPAY | PROVIDERS: PCP Nurse Practitioner Family; Visit Provider Internal Medicine | DX: R07.9 Chest pain, unspecified (principal); I49.8 Other specified cardiac arrhythmias | CPT/HCPCS: 93005; 99204 ==

== ENCOUNTER 2022-11-12 20:00 | Outpatient (CLI) | payer MEDICARE, SELFPAY | END 2022-11-12 20:01 | disposition home or self-care (01) | LOC: SLEEP 11-13 06:22 | PROVIDERS: PCP Nurse Practitioner Family; Visit Provider Nurse Practitioner Family | DX: G47.10 Hypersomnia, unspecified (principal); G47.33 Obstructive sleep apnea (adult) (pediatric); G47.36 Sleep related hypoventilation in conditions classified elsewhere | CPT/HCPCS: 95810 ==

== ENCOUNTER → 2022-11-28 11:28 | Outpatient (BNVA) | payer MEDICARE, SELFPAY | PROVIDERS: PCP Nurse Practitioner Family; Referring Provider Nurse Practitioner Family; Visit Provider Internal Medicine Pulmonary Disease | DX: I11.0 Hypertensive heart disease with heart failure (principal); I50.9 Heart failure, unspecified; E78.5 Hyperlipidemia, unspecified | CPT/HCPCS: 80048; 83880; 99204 ==

== ENCOUNTER 2022-12-11 13:50 | Observation (INO) | payer MEDICARE, SELFPAY ==
[2022-12-11] VITALS (21 sets, daily range): BP systolic 94–136; BP diastolic 57–80; PULSE 68–106; RESP 15–26; TEMP 36.6–36.9; O2SAT 92–96; BMI 36.1
--- NOTE | 2022-12-11 09:00 | XACV_ITS ---
Exam Room: 2 Ht: 183 cm Wt: 121 kg BSA: 2.52 m2 Gender: Male : 1955 Any Known Allergies: Penicillins Exam Priority: Routine Procedure(s): Procedure Description: Diagnostic procedure Procedure Description: Left Heart Catheterization Procedure Description: Miscellaneous Procedure Description: Angio-Seal Procedure Description: Coronary Angiography Diagnostic Cath Status: Elective Diagnostic Findings * Indication: Patient has ascending thoracic aneurysm that we will have surgical intervention. Coronary angiogram done as preoperative work-up and planning. * Left Main has no significant disease. * Circumflex has no significant disease. * Right Coronary Artery has no significant disease. * Proximal Left Anterior Descending: severe, eccenteric 70% stenosis, CHASITY: 3 flow. * Coronary angiography shows right dominance. Conclusions 1. Severe proximal LAD stenosis. 2. Patient will need CABG at time of thoracic aortic aneurysm repair. Recommendations * Aggressive risk factor modification. * Follow up with CT surgery team for thoracic aortic aneurysm repair and CABG. Interventional RX Recommendation: CABG Diagnostic RX Recommendation: CABG Pressures Phase:Rest AO : 108 / 79 ( 93 ) @ 11:34:00 AM 109 / 79 ( 94 ) @ 11:35:00 AM 133 / 77 ( 102 ) @ 11:37:00 AM 112 / 55 ( 79 ) @ 11:41:00 AM 119 / 47 ( 81 ) @ 11:41:00 AM LV : 129 / -14 / 11 @ 11:40:00 AM 132 / -13 / 12 @ 11:41:00 AM Valves Phase:DefaultPhase AV : 19.0 @ 11:08:42 AM 19.0 @ 11:08:42 AM AV Mean Gradient: 16.0 @ 11:08:42 AM 16.0 @ 11:08:42 AM Clinical Evaluation EBL: 5mL-10mL Procedural Details Procedure Consent Obtained. Admit Source: Out Patient. Pre-Procedure Time Out. Identified patient by full name and date of as verbalized by the patient/guarantor. Does the consent match the physician's order: Yes. Accurate & Complete Informed Consent: Yes. Inpatient/Outpatient History & Physical on Chart: Yes. If H&P is completed, is and addenduem needed: No; If yes, is the addendum complete: N/A. Visualize and Verify Site with Patient/Guarantor: N/A. Relevant Radiology Images available: Yes. The risks, benefits, and alternatives of sedation and/or procedure were discussed by physician. The patient agrees to continue. Procedure started. [facility] Clinical Fraility Score: 4: Vulnerable. Blunger Loader Indications: pre-surgical evaluation. Chest Pain Symptom Assessment: Atypical Angina. Correct patient, site and procedure confirmed by cath team. Current diagnosis: Chest Pain. PERRLA. 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 Lungs clear x 5 lobes. IV Site on Arrival: 20 gauge in the right anticubital. IV Fluids: 0.9% NaCl at KVO. 0 mL infused prior to dock or pier laborer. Pre Procedural Pulses: bilateral radial was 2+. Pre Procedural Pulses: bilateral posterior tibial was 3+. Pre Procedural Pulses: bilateral dorsalis pedis was 3+. Oxygen started at 2liters/min via nasal canula. right groin was prepped with chloroprep then draped in the usual sterile fashion. Physician notified. Baseline sample Acquired. HR: 0 BPM. Physician arrived. IV fluids increased to 100ml/hr per physicians orders. Physician scrubbed in. Immediate Pre-Procedure Time Out. Correct Patient: Yes; Correct Procedure: Yes; Correct Site: Yes; Correct Patient Position: Yes; Correct Supplies: Yes; Dried Flammable Prep: Yes; Blood Products Available: N/A;. Lidocaine 1% infiltrated to the right groin. Arterial access obtained with micropuncture set. A 5 liberian JR4 catheter in over standard wire. Catheter removed over the standard wire. A 5 liberian JL5 catheter in over wire. Catheter removed over the standard wire. A 5 liberian JL6 catheter in over wire. Multiple views taken of left coronary artery. Catheter removed over the standard wire. A 5 liberian JR5 catheter in over wire. Multiple views taken of right coronary artery. EDP Sample taken: LV 129/-15,11; HR: 80 BPM; SpO2: 98%. Pullback taken: LV 132/-14,12; AO 112/55(79); Mean: 16mmHg, Peak to Peak: 19mmHg, SEP: 27sec/min; HR: 85 BPM; SpO2: 98%. Physician review of cine films. Side port of sheath attached to Normal Saline flush at KVO to maintain patency. Catheter out. Lidocaine 1% infiltrated to the right groin. Angioseal placed without complications Lot #[id number]. No signs or symptoms of hematoma noted. Sterile dressing applied per usual sterile fashion. Physician scrubbed out. Post Procedure: Pulses reassessed and unchanged. PERRLA. 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 No VTE prophylaxis required. Medication's Wasted: Heparin = 1000 units. Medication's Wasted: Other = Versed 1 mg. Medication's Wasted: Other = Fentanyl 50 mcg. Total IV fluids: 60 mL. A Angio-Seal VIP ([place]) was successful obtaining hemostatsis at the Right Femoral artery insertion site. Estimated blood loss: 5mL-10mL. Responsiveness - Normal response to verbal stimuli; alert and oriented, PERRLA. Airway - Unaffected, no intervention required; spontaneous ventilation. Circulation: W/N/L, pulses unchanged. Nausea/Vomiting: No. Procedure completed. Patient transferred by bed to CPRU. Vital chart was stopped. Access Site Site: Right Femoral artery Sheath Size: 6 Fr Hemostasis Method: Angio-Seal VIP ([place]) Hemostasis Success: Successful Procedure Medications Start: 10:15 AM Stop: 10:15 AM Medication: Versed Amount: 1 mg Route: I.V. Start: 10:15 AM Stop: 10:15 AM Medication: Fentanyl Amount: 50 mcg Route: I.V. I, the attending physician, have reviewed and verified all procedure medications. Yes, all medications given per verbal order History/Risk Factors Hypertension: Yes Dyslipidemia: No Peripheral Arterial Disease (PAD): No Myocardial Infarction (IN): No Obesity: Yes Renal Disease: No Tobacco Use: Former Prior Interventions PCI: No CABG: No Valve Surgery: No Report Signatures Finalized by Anam Moralez MD on 12/16/2022 07:34 AM
[2022-12-11] MEDS: aspirin 325 mg Tablet PO (09:10)
[2022-12-11] MEDS: diphenhydrAMINE 50 mg Capsule PO (09:10)
[2022-12-11 09:24] LABS: Basophils # 0.1 10^3/uL (0.0-0.1); Basophils % 0.8 %; Eosinophils # 0.4 10^3/uL (0.0-0.8); Eosinophils % 4.5 %; Hematocrit 46.6 % (37-53); Lymphocytes # 1.4 10^3/uL (0.8-4.8); Lymphocytes % 15.7 %; Mean Corpuscular HGB Conc 30.7 g/dL (30-55); Mean Corpuscular Hemoglobin 26.4 pg (27-33); Mean Corpuscular Volume 86.1 fl (82-101); Mean Platelet Volume 11.3 fL (7.4-10.4); Monocytes # 0.7 10^3/uL (0.2-0.9); Monocytes % 7.9 %; Neutrophils # 6.17 10^3/uL (1.8-7.7); Neutrophils % 70.8 %; Nucleated Red Blood Cells % 0 %; Platelet Count 283 10^3/cmm (157-399); Red Blood Count 5.41 10^6/uL (3.85-5.65); Red Cell Distribution Width 15.3 % (12.1-15.1); White Blood Count 8.72 10^3/uL (3.29-11.43)
[2022-12-11 09:44] LABS: Anion Gap 15.2 (5-19); Blood Urea Nitrogen 33 mg/dL (8-23); Calcium 9.2 mg/dL (8.5-10.5); Carbon Dioxide 28 mmol/L (22-29); Chloride 99 mmol/L (98-107); Glomerular Filtration Rate 46.8 mL/min (90-130); Glucose 124 mg/dL (65-115); Osmolality Calculated 295 mOsm/kg (285-295); Potassium 4.2 mmol/L (3.5-5.1); Sodium 138 mmol/L (136-145)
--- NOTE | 2022-12-11 10:16 | P.HP_ITS ---
Same Day Surgery H&P Indication for Procedure/HPI DATE OF PROCEDURE: December 11, 2022 CHIEF COMPLAINT/INDICATIONFOR SURGICAL PROCEDURE: Pre-surgical workup for thoracic aortic aneurysm repair PREOP DIAGNOSIS: Pre-surgical workup for thoracic aortic aneurysm repair PLANNED PROCEDURE: Operation Date: 12/11/22 10:00 Proposed Procedures p [facility] 51283,R94.39(Left) - Anam Moralez M.D 67-year-old man with past medical history of hypertension and hyperlipidemia who is here for left heart cath for pre-surgical workup. He has shortness of breath. Medications/Allergies* Home Medications Medication Instructions Recorded Confirmed Type albuterol sulfate 90 mcg/actuation 2 puff inhalation Q4H PRN 08/23/22 12/10/22 History aerosol inhaler Shortness Of Breath Or Wheezing fluticasone furoate 100 1 inh inhalation DAILY 10/10/22 12/10/22 History mcg-vilanterol 25 mcg/dose inhalation powder (Breo Ellipta) lisinopril 20 mg tablet 10 mg PO DAILY 12/10/22 12/10/22 History metoprolol succinate 50 mg 25 mg PO DAILY 12/10/22 12/10/22 History tablet,extended release 24 hr Allergies/Adverse Reactions Allergy/AdvReac Type Severity Reaction Status Date / Time penicillin G Allergy Unknown Verified 11/28/22 10:06 Penicillins Allergy ADR-Dizzine Verified 11/28/22 10:06 ss Current Medications: Generic Name Dose Route Start Last Admin Trade Name Freq PRN Reason Stop Dose Admin Sodium Chloride 1,000 mls @ 50 mls/hr 12/11/22 09:00 12/11/22 09:25 Sodium Chloride 0.9% IV 12/12/22 04:59 Not Given .Q20H ONE Pertinent History/Comorbid Conditions* Medical History (Updated 12/01/22 @ 21:07 by Jaylen Bishop MD) Acute heart failure Ascending aortic aneurysm Basilar artery stenosis Carotid stenosis Chronic kidney disease Chronic radicular low back pain Congestive heart failure COPD (chronic obstructive pulmonary disease) COPD with acute exacerbation CVA (cerebral vascular accident) Hydronephrosis Hyperlipidemia Hypertension TYLER (obstructive sleep apnea) Quit smoking Shortness of breath Surgical History (Updated 08/23/22 @ 12:56 by Marty Taylor MD) History of biliary duct stent placement History of cholecystectomy Family History (Updated 01/23/22 @ 09:12 by Hossein Aparicio) Father Mother Alcohol abuse Father CAD (coronary artery disease) Mother Father Mother Father Cancer Mother Mother Lung Hypertension Mother Social History Smoking and tobacco status: former smoker Quit status (tobacco): has quit using tobacco Year quit tobacco: 2015 Former quit date comment: 2 ppd X 45 years Alcohol intake: current Alcohol intake frequency: holidays/special occasions only Alcohol type: beer Pertinent Exam Findings alert, oriented x 3, clear to auscultation bilaterally and regular rate & rhythm Conscious Sedation Assessment PATIENT ASSESSED PRIOR TO SEDATION, WITH NO CHANGE NOTED: Yes AIRWAY EVAL/ANESTHESIA PLAN: normal airway, ASA III, Local Anesthesia, Risks, benefits & alternatives of sedation and/or procedure discussed and Patient agrees to continue as planned ADDITIONAL INFORMATION: Moderate sedation Recommendations Surgery/Procedure today (Left heart cath ) Coding Level of Care Code Acute Code for Chg Fwd Diagnoses
[2022-12-11] MEDS: sodium chloride 0.9% 1,000 ML 100 ML IV (12:00)
== END 2022-12-11 17:53 | disposition home or self-care (01) ==
LOC: CSU 13:50
PROVIDERS: Absent Provider Thoracic Surgery (Cardiothoracic Vascular Surgery); Admitting Provider Internal Medicine; PCP Nurse Practitioner Family; Visit Provider Internal Medicine
DX: R94.39 Abnormal result of other cardiovascular function study (principal); I13.0 Hypertensive heart and chronic kidney disease with heart failure and stage 1 through stage 4 chronic kidney disease, or unspecified chronic kidney disease; N18.9 Chronic kidney disease, unspecified; J44.9 Chronic obstructive pulmonary disease, unspecified; Z86.73 Personal history of transient ischemic attack (TIA), and cerebral infarction without residual deficits; I50.9 Heart failure, unspecified; E78.5 Hyperlipidemia, unspecified; I10 Essential (primary) hypertension; G47.33 Obstructive sleep apnea (adult) (pediatric); Z87.891 Personal history of nicotine dependence
CPT/HCPCS: 36415; 80048; 85025; 93458; 96361; 96365; 99152; 99153; C1760; C1769; C1887; C1894; G0378; J1644; J2250; J3010; J3490; J7030; Q0163; Q9967

== ENCOUNTER 2022-12-13 10:48 | Day surgery (SDC) | payer MEDICARE, SELFPAY ==
[2022-12-11 11:25] VITALS: BMI 36.9
[2022-12-13 11:08] VITALS: BP 154/77; PULSE 67; RESP 16; TEMP 36.2; O2SAT 96
[2022-12-13] MEDS: sodium chloride 0.9% 1,000 ML 30 ML IV (11:20)
--- NOTE | 2022-12-13 11:35 | USCV_ITS ---
Yannick Lucas Age: 67 Gender: M : 1955 Exam Date: 12/13/2022 12:19 Ordering Phys: Anam Moralez M.D ([email or web address]) Technologist: Julian Gomez [place] [facility] [place]: aaa BP: / HR: Rhythm: Sinus Technical Quality: Excellent MEASUREMENTS (Male / Female) Normal Values Medications Complications None Proc. Components After anesthesia team administered sedation, we proceeded with advancing the CHARLETTE probe and obtained images. FINDINGS Left Ventricle LV systolic function is normal. Right Ventricle Normal in size and function Right Atrium Grossly normal Left Atrium Grossly normal LA Appendage No left atrial appendage thrombus seen IA Septum Normal Mitral Valve Structurally normal mitral valve. Mild mitral regurgitation seen. Aortic Valve Structurally normal tricuspid aortic valve. Trace aortic regurgitation. Tricuspid Valve Structurally normal Pulmonic Valve Grossly normal Pericardium Normal Aorta Dilated. On CHARLETTE maximum diameter obtained is 4.6cm. Mild to moderate atherosclerotic plauqe seen CONCLUSIONS LV systolic function is normal. No left atrial appendage thrombus seen. Mild mitral regurgitation seen. Structurally normal aortic valve. Trace aortic regurgitation. Ascending aorta is dilated. Mild to moderate atherosclerotic plaque noted. Anam Moralez MD (Electronically Signed) Final Date: 16 December 2022 07:47 S
--- NOTE | 2022-12-13 11:52 | W.PM.OPSFHP ---
Same Day Surgery H&P Indication for Procedure/HPI DATE OF PROCEDURE: December 13, 2022 CHIEF COMPLAINT/INDICATIONFOR SURGICAL PROCEDURE: Pre surgical work up for thoracic aortic aneurysm repair/assess aortic valve. PREOP DIAGNOSIS: Pre surgical work up for thoracic aortic aneurysm repair/assess aortic valv PLANNED PROCEDURE: Operation Date: 12/13/22 12:00 Proposed Procedures p [facility] 18369,I71.21(Not Applicable) - Anam Moralez M.D 67-year-old man with past medical history of thoracic aortic aneurysm and is planned to undergo surgery for that is here for transesophageal echocardiogram to assess aortic valve prior to the surgical procedure Medications/Allergies* Home Medications Medication Instructions Recorded Confirmed Type albuterol sulfate 90 mcg/actuation 2 puff inhalation Q4H PRN 08/23/22 12/11/22 History aerosol inhaler Shortness Of Breath Or Wheezing fluticasone furoate 100 1 inh inhalation DAILY 10/10/22 12/11/22 History mcg-vilanterol 25 mcg/dose inhalation powder (Breo Ellipta) lisinopril 20 mg tablet 10 mg PO DAILY 12/10/22 12/11/22 History metoprolol succinate 50 mg 50 mg PO DAILY 12/10/22 12/11/22 History tablet,extended release 24 hr Allergies/Adverse Reactions Allergy/AdvReac Type Severity Reaction Status Date / Time penicillin G Allergy Unknown Verified 12/11/22 11:22 Penicillins Allergy ADR-Dizzine Verified 12/11/22 11:22 ss Current Medications: Generic Name Dose Route Start Last Admin Trade Name Freq PRN Reason Stop Dose Admin Sodium Chloride 1,000 mls @ 30 mls/hr 12/13/22 11:00 12/13/22 11:20 Sodium Chloride 0.9% IV 12/14/22 10:59 30 mls/hr .Q24H SELENE Administration Pertinent History/Comorbid Conditions* Medical History (Updated 12/11/22 @ 16:47 by Anam Moralez M.D) Acute heart failure Ascending aortic aneurysm Basilar artery stenosis Carotid stenosis Chronic kidney disease Chronic radicular low back pain Congestive heart failure COPD (chronic obstructive pulmonary disease) COPD with acute exacerbation CVA (cerebral vascular accident) Hydronephrosis Hyperlipidemia Hypertension TYLER (obstructive sleep apnea) Quit smoking Shortness of breath Surgical History (Updated 08/23/22 @ 12:56 by Marty Taylor MD) History of biliary duct stent placement History of cholecystectomy Family History (Updated 01/23/22 @ 09:12 by Hossein Aparicio) Father Mother Alcohol abuse Father CAD (coronary artery disease) Mother Father Mother Father Cancer Mother Mother Lung Hypertension Mother Social History Smoking and tobacco status: former smoker Quit status (tobacco): has quit using tobacco Year quit tobacco: 2015 Former quit date comment: 2 ppd X 45 years Alcohol intake: current Alcohol intake frequency: holidays/special occasions only Alcohol type: beer Pertinent Exam Findings alert, oriented x 3, clear to auscultation bilaterally and regular rate & rhythm Conscious Sedation Assessment Anesthesia team administering sedation Recommendations Surgery/Procedure today (Transesophageal echocardiogram ) Coding Level of Care Code Acute Code for Chg Fwd Diagnoses
[2022-12-13 11:53] LABS: Anion Gap 13.5 (5-19); Blood Urea Nitrogen 30 mg/dL (8-23); Carbon Dioxide 27 mmol/L (22-29); Chloride 107 mmol/L (98-107); Glomerular Filtration Rate 60.6 mL/min (90-130); Glucose 124 mg/dL (65-115); Osmolality Calculated 302 mOsm/kg (285-295); Potassium 5.5 mmol/L (3.5-5.1); Sodium 142 mmol/L (136-145)
--- NOTE | 2022-12-13 12:14 | P.ANESASSM_ITS ---
Pre-Anesthetic Assessment Height/Weight: Height 1.85 m Weight 127.006 kg Temp Pulse Resp BP Pulse Ox O2 Del Method 97.1 F L 67 16 154/77 96 Room Air 12/13/22 11:08 12/13/22 11:08 12/13/22 11:08 12/13/22 11:08 12/13/22 11:08 12/13/22 11:08 Preop Diagnosis: Pre surgical work up for thoracic aortic aneurysm repair/assess aortic valv Operation Date: 12/13/22 12:00 Proposed Procedures p [facility] 47763,I71.21(Not Applicable) - Anam Moralez M.D Familial anesthetic complications: none Was Beta Joan taken within 24 hours: N/A Was Clonidine taken within 24 hours: N/A Last intake: Intake Last Liquid Date 12/12/22 Last Liquid Time 20:00 Last Solid Date 12/12/22 Last Solid Time 20:00 Social Tobacco and No alcohol Exam alert and oriented x 3 Airway Submandibular: within normal limits Cervical ROM: within normal limits Mallampati: Class III Dentition: loose (all loose on bottom) History/ROS No significant history except as noted Pulmonary Chronic Obstructive Pulmonary Disease and Exertional Dyspnea emphysema. supposed to wear 1L O2 at home, but does not comply CV/HEM Hypertension None reported Hepatic None reported GI Gastroesophageal Reflux Disease Metabolic Hyperlipidemia, Morbid Obesity and Thyroid Disease [facility] [place] None reported Neuropsych Cerebrovascular Accident (2017- numbness in left shoulder sometimes. no other deficits) Anesthetic Plan ASA status: 3 Anesthesia: Anesthesia Evaluation, General and MAC Medications/Allergies Home Medications Medication Instructions Recorded Confirmed Last Taken Type albuterol sulfate 90 mcg/actuation 2 puff inhalation Q4H PRN 08/23/22 12/11/22 Unknown History aerosol inhaler Shortness Of Breath Or Wheezing aspirin 81 mg tablet,delayed 81 mg PO DAILY #60 tabs 08/26/22 12/11/22 12/12/22 Rx release (Adult Aspirin Regimen) atorvastatin 80 mg tablet 80 mg PO QPM #60 tabs 08/26/22 12/11/22 12/12/22 Rx furosemide 40 mg tablet (Lasix) 40 mg PO DAILY #60 tabs 08/26/22 12/11/22 12/12/22 Rx potassium chloride 10 mEq 10 meq PO DAILY #60 tabs 08/26/22 12/11/22 12/12/22 Rx tablet,extended release fluticasone furoate 100 1 inh inhalation DAILY 10/10/22 12/11/22 12/12/22 History mcg-vilanterol 25 mcg/dose inhalation powder (Breo Ellipta) lisinopril 20 mg tablet 10 mg PO DAILY 12/10/22 12/11/22 12/12/22 History metoprolol succinate 50 mg 50 mg PO DAILY 12/10/22 12/11/22 12/12/22 History tablet,extended release 24 hr Allergies Allergy/AdvReac Type Severity Reaction Status Date / Time penicillin G Allergy Unknown Verified 12/11/22 11:22 Penicillins Allergy ADR-Dizzine Verified 12/11/22 11:22 ss Current Medications Generic Name Dose Route Start Last Admin Trade Name Freq PRN Reason Stop Dose Admin Sodium Chloride 1,000 mls @ 30 mls/hr 12/13/22 11:00 12/13/22 11:20 Sodium Chloride 0.9% IV 12/14/22 10:59 30 mls/hr .Q24H SELENE Administration PFSH Anesthesia Medical History (Updated 12/11/22 @ 16:47 by Anam Moralez M.D) Acute heart failure Ascending aortic aneurysm Basilar artery stenosis Carotid stenosis Chronic kidney disease Chronic radicular low back pain Congestive heart failure COPD (chronic obstructive pulmonary disease) COPD with acute exacerbation CVA (cerebral vascular accident) Hydronephrosis Hyperlipidemia Hypertension TYLER (obstructive sleep apnea) Quit smoking Shortness of breath Surgical History History of biliary duct stent placement History of cholecystectomy Family History Mother Hypertension CAD (coronary artery disease) Cancer Father CAD (coronary artery disease) Mother CAD (coronary artery disease) Cancer Lung Father CAD (coronary artery disease) Alcohol abuse Social History Smoking and tobacco status: former smoker Quit status (tobacco): has quit using tobacco Year quit tobacco: 2015 Former quit date comment: 2 ppd X 45 years Alcohol intake: current Alcohol intake frequency: holidays/special occasions only Alcohol type: beer Data Anesthesia 12/13/22 11:18 BMP 12/13/22 11:18 Sodium 142 Potassium 5.5 H Chloride 107 Carbon Dioxide 27 BUN 30 H Creatinine 1.2 Glucose 124 H Calcium 9.0 Cardiac Studies: Echocardiogram 08/23/22
[2022-12-13 12:29] VITALS: BP 130/67; PULSE 81; RESP 16; TEMP 37; O2SAT 90
--- NOTE | 2022-12-13 15:03 | ANE.PACU2 ---
Inpatient post-anesthesia follow up: Airway intact: Yes Vital signs: Temperature 98.6 F Pulse Rate 81 Respiratory Rate 16 Blood Pressure 130/67 Pulse Oximetry 90 Oxygen Delivery Me thod Room Air Oxygen Flow Rate Fraction of Inspir ed Oxygen Hydration adequate: Yes Nausea and vomiting: No Pain level: 1 Mental status: Baseline
== END 2022-12-13 13:06 | disposition home or self-care (01) ==
PROVIDERS: PCP Nurse Practitioner Family; Visit Provider Internal Medicine
PROC: (CPT 93312; principal; 2022-12-13 12:00)
DX: I71.21 Aneurysm of the ascending aorta, without rupture (principal); J44.9 Chronic obstructive pulmonary disease, unspecified; I11.0 Hypertensive heart disease with heart failure; K21.9 Gastro-esophageal reflux disease without esophagitis; E78.5 Hyperlipidemia, unspecified; E03.9 Hypothyroidism, unspecified; E66.01 Morbid (severe) obesity due to excess calories; Z79.82 Long term (current) use of aspirin; I50.9 Heart failure, unspecified; Z87.891 Personal history of nicotine dependence
CPT/HCPCS: 80048; 93312; 93320; 93325; J2704; J7030

== ENCOUNTER → 2023-04-02 14:04 | Outpatient (BNVA) | payer MEDICARE, SELFPAY | PROVIDERS: PCP Nurse Practitioner Family; Visit Provider Internal Medicine | DX: I13.0 Hypertensive heart and chronic kidney disease with heart failure and stage 1 through stage 4 chronic kidney disease, or unspecified chronic kidney disease (principal); N18.9 Chronic kidney disease, unspecified; I50.9 Heart failure, unspecified; E78.5 Hyperlipidemia, unspecified; I71.21 Aneurysm of the ascending aorta, without rupture; Z87.891 Personal history of nicotine dependence | CPT/HCPCS: 36415; 80048; 83880; 99214 ==

== ENCOUNTER → 2023-04-25 10:13 | Outpatient (BNVA) | payer MEDICARE, SELFPAY | PROVIDERS: PCP Nurse Practitioner Family; Visit Provider Internal Medicine | DX: E78.5 Hyperlipidemia, unspecified (principal); I11.0 Hypertensive heart disease with heart failure; I50.9 Heart failure, unspecified | CPT/HCPCS: 80048; 83880 ==

== ENCOUNTER → 2023-09-24 11:15 | Outpatient (BNVA) | payer MEDICARE, SELFPAY | PROVIDERS: PCP Nurse Practitioner Family; Visit Provider Nurse Practitioner Family | DX: I13.0 Hypertensive heart and chronic kidney disease with heart failure and stage 1 through stage 4 chronic kidney disease, or unspecified chronic kidney disease (principal); N18.9 Chronic kidney disease, unspecified; I50.9 Heart failure, unspecified; Z98.890 Other specified postprocedural states; Z86.79 Personal history of other diseases of the circulatory system; I25.10 Atherosclerotic heart disease of native coronary artery without angina pectoris; Z87.891 Personal history of nicotine dependence | CPT/HCPCS: 99214 ==

== ENCOUNTER → 2024-06-03 12:44 | Outpatient (BNVA) | payer MEDICARE, MEDICAID, SELFPAY | PROVIDERS: PCP Nurse Practitioner Family; Referring Provider Nurse Practitioner Family; Visit Provider Nurse Practitioner Family | DX: L21.8 Other seborrheic dermatitis (principal); L02.821 Furuncle of head [any part, except face]; L82.1 Other seborrheic keratosis; L71.8 Other rosacea; D23.4 Other benign neoplasm of skin of scalp and neck | CPT/HCPCS: 99204 ==

== ENCOUNTER 2024-08-30 13:12 | Outpatient (CLI) | payer MEDICARE, SELFPAY ==
--- NOTE | 2024-08-30 13:17 | CT_ITS ---
WS: [id number] LDCT LUNG CANCER SCREENING HISTORY: HX OF TOBACCO USE TECHNIQUE: Axial imaging performed from the apices to 1 cm below the costophrenic angles. Coronal and sagittal reformats are submitted with axial MIP series. All CT scans at [facility] use at least one of these dose optimization techniques: automated exposure control; mA and/or kV adjustment per patient size (includes targeted exams where dose is matched to clinical indication); or iterative reconstruction. DLP: 173.00 mGy.cm DIvol: Mean CTDIvol: 4.20 (mGy) COMPARISON: 08/23/2022 Diagnostic quality: Satisfactory Lungs: 6 mm superior LEFT fissural nodule. 3 mm noncalcified nodule at the RIGHT lung base. There are a few scattered granulomata. No endobronchial lesions. Moderate pulmonary hyperexpansion with centrilobular emphysema. Heart: Prior median sternotomy and bypass surgery. Ascending aorta is prominent as previously described. Scattered coronary artery calcifications. No mediastinal or hilar adenopathy. 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 Other findings: Small hiatal hernia. Prior cholecystectomy. [address] LEFT adrenal nodule. CT/CT lung screening [id number] IMPRESSION: LUNG-RADS: 2-Benign Appearance or Behavior FOLLOW UP: 12 Month: Continue annual screening with LDCT OTHER FINDINGS (S MODIFIER): None.
== END 2024-08-30 13:13 | disposition home or self-care (01) ==
PROVIDERS: PCP Nurse Practitioner Family; Visit Provider Nurse Practitioner Family
DX: Z12.2 Encounter for screening for malignant neoplasm of respiratory organs (principal); Z87.891 Personal history of nicotine dependence; R91.8 Other nonspecific abnormal finding of lung field; J84.10 Pulmonary fibrosis, unspecified; J43.2 Centrilobular emphysema; Z98.890 Other specified postprocedural states; R93.89 Abnormal findings on diagnostic imaging of other specified body structures; I25.10 Atherosclerotic heart disease of native coronary artery without angina pectoris; K44.9 Diaphragmatic hernia without obstruction or gangrene; Z90.49 Acquired absence of other specified parts of digestive tract; E27.8 Other specified disorders of adrenal gland
CPT/HCPCS: 71271

== ENCOUNTER → 2024-08-31 13:50 | Outpatient (BNVA) | payer MEDICARE, SELFPAY | PROVIDERS: PCP Nurse Practitioner Family; Visit Provider Nurse Practitioner Family | DX: L40.0 Psoriasis vulgaris (principal); L60.8 Other nail disorders; L73.9 Follicular disorder, unspecified; D23.4 Other benign neoplasm of skin of scalp and neck; L82.1 Other seborrheic keratosis | CPT/HCPCS: 99214 ==

== ENCOUNTER 2024-09-15 11:03 | Outpatient (CLI) | payer MEDICARE, SELFPAY ==
[2024-09-15 11:16] VITALS: PULSE 78; RESP 18; O2SAT 97
== END 2024-09-15 11:04 | disposition home or self-care (01) ==
PROVIDERS: PCP Nurse Practitioner Family; Visit Provider Nurse Practitioner Family
DX: R06.02 Shortness of breath (principal); J98.8 Other specified respiratory disorders; R94.2 Abnormal results of pulmonary function studies
CPT/HCPCS: 94060; 94726; 94729; J7613

== ENCOUNTER → 2024-09-22 12:41 | Outpatient (BNVA) | payer MEDICARE, SELFPAY | PROVIDERS: PCP Nurse Practitioner Family; Visit Provider Internal Medicine | DX: I11.0 Hypertensive heart disease with heart failure (principal); I50.9 Heart failure, unspecified; E78.5 Hyperlipidemia, unspecified; I71.21 Aneurysm of the ascending aorta, without rupture; Z79.82 Long term (current) use of aspirin; Z87.891 Personal history of nicotine dependence | CPT/HCPCS: 99214 ==

== ENCOUNTER 2024-11-30 19:53 | Outpatient (CLI) | payer MEDICARE, SELFPAY | END 2024-11-30 19:54 | disposition home or self-care (01) | LOC: SLEEP 19:55 | PROVIDERS: PCP Nurse Practitioner Family; Referring Provider Nurse Practitioner Family; Visit Provider Internal Medicine Pulmonary Disease | DX: G47.33 Obstructive sleep apnea (adult) (pediatric) (principal); G47.36 Sleep related hypoventilation in conditions classified elsewhere | CPT/HCPCS: 95810 ==

== ENCOUNTER 2025-02-01 19:52 | Outpatient (CLI) | payer MEDICARE, SELFPAY | END 2025-02-01 19:53 | disposition home or self-care (01) | PROVIDERS: PCP Nurse Practitioner Family; Referring Provider Nurse Practitioner Family; Visit Provider Internal Medicine Pulmonary Disease | DX: G47.33 Obstructive sleep apnea (adult) (pediatric) (principal) | CPT/HCPCS: 95811 ==